=== PATIENT | male | born 1945 | race Caucasian/White ===

== ENCOUNTER 2018-12-18 06:57 | Day surgery (SDC) | payer MEDICARE, BC ==
[2018-12-18] MEDS ORDERED: Lactated Ringers 1,000 ML IV SCH (07:00)
[2018-12-18] MEDS ORDERED: Lidocaine 1%/Sod Bicarbonate in NS 8.4% 1 ML Syringe IDERM PRN (07:00)
[2018-12-18] MEDS ORDERED: Sodium Chloride 0.9% 10 ML Syringe FLUSH PRN (07:00)
[2018-12-18] MEDS ORDERED: Lidocaine 0.5% 50 ML SDV ONE (07:22)
[2018-12-18] MEDS ORDERED: Sodium Bicarbonate 8.4% 50 MEQ/50 ML SDV ONE (07:25)
[2018-12-18] MEDS ORDERED: Midazolam 1 MG/ML 2 ML SDV ONE (07:26)
[2018-12-18] MEDS ORDERED: fentaNYL 100 MCG/2 ML SDV ONE (07:27)
[2018-12-18] MEDS ORDERED: Propofol 200 MG/20 ML SDV ONE (07:28)
[2018-12-18] MEDS ORDERED: ceFAZolin 1 GM Vial ONE ×2 (07:30)
[2018-12-18] MEDS ORDERED: Lidocaine 1% 2 ML ONE ×2 (07:30)
--- NOTE | 2018-12-18 07:56 | PCM.PREANE ---
Preanesthetic Assessment - Anesthesia/Transfusion/Family Hx Anesthesia History: Prior Anesthesia Without Reaction Family History of Anesthesia Reaction: No Transfusion History: No Prior Transfusion(s) - Review of Systems General: No Symptoms Pulmonary: No Symptoms Cardiovascular: No Symptoms Gastrointestinal: No Symptoms Neurological: No Symptoms Other: Reports: None - Physical Assessment NPO Status Date: 12/17/18 NPO Status Time: 18:00 Pulse: 51 O2 Sat by Pulse Oximetry: 92 Respiratory Rate: 20 Blood Pressure: 143/68 Temperature: 97.6 C ASA Class: 2 Mental Status: Alert & Oriented x3 Airway Class: Mallampati = 2 Dentition: Reports: Broken Tooth/Teeth Thyro-Mental Finger Breadths: 3 Mouth Opening Finger Breadths: 3 ROM/Head Extension: Full Lungs: Clear to Auscultation, Normal Respiratory Effort, Decreased Breath Sounds Cardiovascular: Regular Rate, Regular Rhythm - Allergies Allergies/Adverse Reactions: Allergies Allergy/AdvReac Type Severity Reaction Status Date / Time bee venom protein (honey bee) Allergy Swelling Verified 12/17/18 13:17 Penicillins Allergy Cannot Verified 12/17/18 13:17 Remember - Anesthesia Plan Beta Stef: Metoprolol Med Last Dose Date: 12/18/18 Med Last Dose Time: 05:00 - Acknowledgements Anesthesia Type Planned: CONNER Pt an Appropriate Candidate for the Planned Anesthesia: Yes Alternatives and Risks of Anesthesia Discussed w Pt/Guardian: Yes Pt/Guardian Understands and Agrees with Anesthesia Plan: Yes PreAnesthesia Questionnaire HEENT History: Reports: Hard of Hearing, Impaired Vision, Other (See Below) Other HEENT History: has hearing aids, wears glasses Cardiovascular History: Reports: CAD, High Cholesterol, Hypertension, Other ( See Below) Other Cardiovascular History: heart disease Respiratory History: Reports: Sleep Apnea Other Respiratory History: cpap with 1 liter of oxygen at night Gastrointestinal History: Reports: None Genitourinary History: Reports: None, 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: None Musculoskeletal History: Reports: Gout, Osteoarthritis, Other (See Below) Other Musculoskeletal History: right wrist ganglion cyst Neurological History: Reports: None Psychiatric History: Reports: None Endocrine/Metabolic History: Reports: Diabetes, Type II (BS 138 @ 0751), Other ( See Below) Other Endocrine/Metabolic History: excess weight Hematologic History: Reports: None Immunologic History: Reports: None Oncologic (Cancer) History: Reports: None Dermatologic History: Reports: None - Past Surgical History Head Surgeries/Procedures: Reports: None HEENT Surgical History: Reports: Other (See Below) Other HEENT Surgeries/Procedures: bilateral upper and lower lid blepharoplasty Cardiovascular Surgical History: Reports: None Respiratory Surgical History: Reports: None GI Surgical History: Reports: Colonoscopy Female Surgical History: Reports: None Male Surgical History: Reports: None Endocrine Surgical History: Reports: None Neurological Surgical History: Reports: None Musculoskeletal Surgical History: Reports: Arthroscopic Knee, Knee Replacement ( (L)) Oncologic Surgical History: Reports: None Dermatological Surgical History: Reports: None - SUBSTANCE USE Smoking Status *Q: Former Smoker Recreational Drug Use History: No - HOME MEDS Home Medications: Home Meds Allopurinol [Zyloprim] 300 mg PO DAILY 12/17/18 [History] Aspirin [Ecotrin] 81 mg PO DAILY 12/17/18 [History] Cholecalciferol (Vitamin D3) [Vitamin D3] 1,000 unit PO DAILY 12/17/18 [History] Cyanocobalamin (Vitamin B-12) [Vitamin B-12] 500 mcg PO DAILY 12/17/18 [History] EPINEPHrine [Epipen] 1 dose IM ONETIME PRN 12/17/18 [History] Folic Acid 0.8 mg PO DAILY 12/17/18 [History] Furosemide [Lasix] 40 mg PO Q48H 12/17/18 [History] Furosemide [Lasix] 80 mg PO Q48H 12/17/18 [History] Lisinopril 40 mg PO BID 12/17/18 [History] Metoprolol Tartrate 50 mg PO BID 12/17/18 [History] Spironolactone [Aldactone] 25 mg PO DAILY 12/17/18 [History] Vitamin E 400 unit PO DAILY 12/17/18 [History] amLODIPine Besylate [Norvasc] 5 mg PO BID 12/17/18 [History] atorvaSTATin Calcium [Atorvastatin Calcium] 40 mg PO DAILY 12/17/18 [History] cloNIDine HCl [Catapres] 0.2 mg PO QPM 12/17/18 [History] cloNIDine HCl [Catapres] 0.4 mg PO QAM 12/17/18 [History] metFORMIN [Glucophage XR] 500 mg PO DAILY 12/17/18 [History] - CURRENT (IN HOUSE) MEDS Current Meds: Current Medications Lactated Ringer's (Ringers, Lactated) 1,000 mls @ 125 mls/hr IV ASDIRECTED SHERRIE Stop: 12/18/18 23:00 Lidocaine/Sodium Bicarbonate (Buffered Lidocaine 1% In Ns 8.4%) 0.25 ml IDERM ONETIME PRN PRN Reason: Prior to IV Start Stop: 12/18/18 23:00 Sodium Chloride (Saline Flush) 10 ml FLUSH ASDIRECTED PRN PRN Reason: Keep Vein Open Stop: 12/18/18 23:00 Discontinued Medications Cefazolin Sodium (Ancef) Confirm Administered Dose 1 gm .ROUTE .STK-MED ONE Stop: 12/18/18 07:31 Cefazolin Sodium (Ancef) Confirm Administered Dose 1 gm .ROUTE .STK-MED ONE Stop: 12/18/18 07:31 Fentanyl (Sublimaze) Confirm Administered Dose 100 mcg .ROUTE .STK-MED ONE Stop: 12/18/18 07:28 Lidocaine HCl (Xylocaine-Mpf 1%) Confirm Administered Dose 2 mls @ as directed .ROUTE .STK-MED ONE Stop: 12/18/18 07:31 Lidocaine HCl (Xylocaine-Mpf 1%) Confirm Administered Dose 2 mls @ as directed .ROUTE .STK-MED ONE Stop: 12/18/18 07:31 Lidocaine HCl (Xylocaine-Mpf 0.5%) Confirm Administered Dose 50 ml .ROUTE .STK- MED ONE Stop: 12/18/18 07:23 Midazolam HCl (Versed 1 Mg/Ml) Confirm Administered Dose 2 mg .ROUTE .STK-MED ONE Stop: 12/18/18 07:27 Propofol (Diprivan 20 Ml) Confirm Administered Dose 200 mg .ROUTE .STK-MED ONE Stop: 12/18/18 07:29 Sodium Bicarbonate (Sodium Bicarbonate 8.4%) Confirm Administered Dose 50 meq .ROUTE .STK-MED ONE Stop: 12/18/18 07:26
[2018-12-18] MEDS ORDERED: Bupivacaine 0.25% 10 ML SDV ONE (08:12)
[2018-12-18] MEDS ORDERED: Ondansetron 4 MG/2 ML SDV ONE (09:29)
[2018-12-18] MEDS ORDERED: Ketorolac 30 MG/ML SDV ONE (09:30)
--- NOTE | 2018-12-18 09:48 | PCM48HPAN ---
Post Anesthesia Note - EVALUATION WITHIN 48HRS OF ANESTHETIC Vital Signs in Normal Range: Yes Patient Participated in Evaluation: Yes Respiratory Function Stable: Yes Airway Patent: Yes Cardiovascular Function Stable: Yes Hydration Status Stable: Yes Pain Control Satisfactory: Yes Nausea and Vomiting Control Satisfactory: Yes Mental Status Recovered: Yes Pulse Rate: 43 SaO2: 95 Resp Rate: 16 Blood Pressure: 109/63 Pulse Rate: 43 - COMMENTS/OBSERVATIONS Free Text/Narrative:: block receeding, no c/o pain.
--- NOTE | 2018-12-25 13:36 | OR ---
DATE OF OPERATION: 12/18/2018 SURGEON: Josiah Aguillon MD PREOPERATIVE DIAGNOSIS: Right massive dorsal ganglion cyst. POSTOPERATIVE DIAGNOSIS: Right massive dorsal ganglion cyst with extensor tenosynovitis and multilobulated dorsal wrist ganglion cysts. OPERATION PERFORMED: 1. Extensor tenosynovectomy, second, third, and fourth compartments. 2. Posterior interosseous nerve neurectomy. 3. Excision of multiloculated ganglion cysts. 4. Open synovectomy, right wrist. RN ANGIOGRAPHY: assistant director of admissions: Ele Parekh. INDICATIONS: The patient is a very pleasant 73-year-old gentleman with significant wrist arthritis and large recurrent dorsal wrist ganglion cyst. After discussing the risks, benefits, and alternatives of both conservative as well as surgical treatment, the patient verbalized understanding and wished to proceed with surgery. DESCRIPTION OF PROCEDURE: The patient was brought to the operating room. Underwent a Priyanka blockade. Right upper extremity was prepped and draped in a standard orthopedic fashion. Surgical pause was performed identifying the appropriate patient and appropriate extremity to be operated upon. Preoperative antibiotics were given. A dorsal incision was made over the wrist. Sharp dissection was carried down through the skin and subcutaneous tissue. Hemostasis was obtained. A huge ganglion cyst over the dorsum of the wrist appears chronic in nature. We opened the cyst. Again, this was above the extensor tendon and he had significant fluid as well as chronic-appearing ganglion type findings. This was debrided and sent to Pathology. Circumferentially dissected down to the extensor mechanism, he had significant tenosynovitis of second, third, and fourth dorsal compartments. We did a tenosynovectomy of the EPL, ECRB, ECRL, and fourth dorsal compartment extensor tendons. Followed the cyst down to the wrist capsule. Again, this was tracked into the wrist capsule. This was opened. He had significant synovitis of the wrist capsule. We did a synovectomy of his wrist joint, he had some grade 3 and 4 changes present. The ganglion dissected radially over the radiocarpal joint, this was tracked and the synovial cyst was removed. Because of the significant arthritis he had plus a significant tenosynovial hypertrophy, we elected to perform a posterior interosseous nerve neurectomy. We identified the posterior interosseous nerve and resected a 15 mm segment of the nerve. We then irrigated the wounds thoroughly. We closed the capsule with Vicryl suture, closed the extensor retinaculum with Vicryl suture, closed the skin in the standard fashion. He was placed in a well-padded splint, brought to recovery in satisfactory condition. ANESTHESIA: ESTIMATED BLOOD LOSS: MMODAL /[id number]
== END 2018-12-18 11:26 | disposition home or self-care (01) ==
LOC: JD.SDS 06:57
PROVIDERS: ATTEND Orthopaedic Surgery
DX: M67.431 Ganglion, right wrist (principal); M65.4 Radial styloid tenosynovitis [de Quervain]; M19.031 Primary osteoarthritis, right wrist; I25.10 Atherosclerotic heart disease of native coronary artery without angina pectoris; I10 Essential (primary) hypertension; E11.9 Type 2 diabetes mellitus without complications; E78.00 Pure hypercholesterolemia, unspecified; Z88.0 Allergy status to penicillin; Z91.030 Bee allergy status; Z87.891 Personal history of nicotine dependence; Z79.82 Long term (current) use of aspirin; Z79.84 Long term (current) use of oral hypoglycemic drugs; Z79.899 Other long term (current) drug therapy
CPT/HCPCS: 25111; 25118; 64772; 82962; 88304; J0690; J1885; J2001; J2250; J2405; J2704; J3010; J3490; J7120; 01810

== ENCOUNTER 2019-01-19 11:00 | Inpatient (IN) | payer MEDICARE, BC ==
[2019-03-09] MEDS ORDERED: Lactated Ringers 1,000 ML IV SCH (00:01)
[2019-03-09] MEDS ORDERED: Sodium Chloride 0.9% 10 ML Syringe FLUSH PRN (00:01)
[2019-03-09] MEDS ORDERED: Albuterol 0.083% 2.5 MG/3 ML Neb Soln NEB ONE (00:01)
[2019-03-09] MEDS ORDERED: Lidocaine 1%/Sod Bicarbonate in NS 8.4% 1 ML Syringe IDERM PRN (00:01)
[2019-03-09] MEDS ORDERED: Naloxone 0.4 MG/ML SDV IVPUSH PRN (07:26)
[2019-03-09] MEDS ORDERED: Ondansetron 4 MG/2 ML SDV IVPUSH PRN (07:26)
[2019-03-09] MEDS ORDERED: Bisacodyl 5 MG Tab PO PRN (07:26)
[2019-03-09] MEDS ORDERED: Sennosides 8.6 MG Tab PO PRN (07:26)
[2019-03-09] MEDS ORDERED: ceFAZolin 1 GM Vial ONE ×3 (09:34→09:52)
[2019-03-09] MEDS ORDERED: Vancomycin 1 GM SDV ONE ×2 (09:34→10:37)
[2019-03-09] MEDS ORDERED: Iodine/Sodium Iodide 2% Tincture 30 ML Bottle ONE (09:35)
[2019-03-09] MEDS ORDERED: Bupivacaine 0.25% 30 ML SDV ONE (09:35)
--- NOTE | 2019-03-09 09:43 | PCM.PREANE ---
Preanesthetic Assessment - Anesthesia/Transfusion/Family Hx Anesthesia History: Prior Anesthesia Without Reaction Family History of Anesthesia Reaction: No Transfusion History: No Prior Transfusion(s) Intubation History: Unknown - Review of Systems General: No Symptoms Pulmonary: Shortness of Breath, Wheezing, Other Cardiovascular: Other Gastrointestinal: No Symptoms Neurological: No Symptoms Other: Reports: Diabetes - Physical Assessment NPO Status Date: 03/08/19 NPO Status Time: 23:45 O2 Sat by Pulse Oximetry: 95 Respiratory Rate: 16 Vital Signs: Last Vital Signs Temp 36.9 C 03/09/19 08:40 Pulse 63 03/09/19 08:40 Resp 16 03/09/19 08:40 BP 123/69 03/09/19 08:40 Pulse Ox 95 03/09/19 08:40 Height: 1.75 m Weight: 105.687 kg ASA Class: 4 Mental Status: Alert & Oriented x3 Airway Class: Mallampati = 3 Dentition: Reports: Normal Dentition ROM/Head Extension: Limited/Partial Lungs: Crackles, Rales, Wheezing Cardiovascular: Regular Rate - Lab Values: Laboratory Last Values POC Glucose 141 mg/dL (83-110) H 03/09/19 09:10 MRSA (PCR) Negative 02/25/19 14:33 - Allergies Allergies/Adverse Reactions: Allergies Allergy/AdvReac Type Severity Reaction Status Date / Time bee venom protein (honey bee) Allergy Swelling Verified 03/06/19 15:11 Penicillins Allergy Cannot Verified 03/06/19 15:11 Remember - Anesthesia Plan Pre-Op Medication Ordered: Beta Stef Beta Stef: Metoprolol Med Last Dose Date: 03/09/19 Med Last Dose Time: 07:00 - Acknowledgements Anesthesia Type Planned: Spinal Pt an Appropriate Candidate for the Planned Anesthesia: Yes Alternatives and Risks of Anesthesia Discussed w Pt/Guardian: Yes Pt/Guardian Understands and Agrees with Anesthesia Plan: Yes Additional Comments: clonidine this am - CHF - receiving duo neb treatment preop- high risk - stated per orthopedic PA- lives fairly normal life - mows yard with riding mower, cuts branches- - PreAnesthesia Questionnaire HEENT History: Reports: Hard of Hearing, Impaired Vision, Other (See Below) Other HEENT History: has hearing aids, wears glasses Cardiovascular History: Reports: CAD, High Cholesterol, Hypertension, Other ( See Below) Other Cardiovascular History: heart disease Respiratory History: Reports: Sleep Apnea Other Respiratory History: cpap with 2 liter of oxygen at night Gastrointestinal History: Reports: GI Bleed Genitourinary History: Reports: Chronic Renal Insuffiency 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 Musculoskeletal History: Reports: Gout, Osteoarthritis, Other (See Below) Other Musculoskeletal History: right wrist ganglion cyst Neurological History: Reports: None Psychiatric History: Reports: None Endocrine/Metabolic History: Reports: Diabetes, Type II, Obesity/BMI 30+, Other (See Below) Other Endocrine/Metabolic History: excess weight Hematologic History: Reports: None Immunologic History: Reports: None Oncologic (Cancer) History: Reports: None Dermatologic History: Reports: None - Past Surgical History Head Surgeries/Procedures: Reports: None HEENT Surgical History: Reports: Other (See Below) Other HEENT Surgeries/Procedures: bilateral upper and lower lid blepharoplasty Cardiovascular Surgical History: Reports: None Respiratory Surgical History: Reports: None GI Surgical History: Reports: Colonoscopy Female Surgical History: Reports: None Other Female Surgeries/Procedures: HYDROCELE REPAIR Male Surgical History: Endocrine Surgical History: Reports: None Neurological Surgical History: Reports: None Musculoskeletal Surgical History: Reports: Arthroscopic Knee, Knee Replacement, Other (See Below) Other Musculoskeletal Surgeries/Procedures:: R WRIST GANGLION CYST REMOVAL Oncologic Surgical History: Reports: None Dermatological Surgical History: Reports: None - SUBSTANCE USE Smoking Status *Q: Former Smoker Second Hand Smoke Exposure: No Recreational Drug Use History: No - HOME MEDS Home Medications: Home Meds Allopurinol [Zyloprim] 300 mg PO Q48H 12/17/18 [History] Aspirin [Ecotrin EC] 81 mg PO DAILY 12/17/18 [History] Furosemide [Lasix] 40 mg PO TUTHSA 12/17/18 [History] Furosemide [Lasix] 80 mg PO MOWEFR 12/17/18 [History] Lisinopril 40 mg PO BID 12/17/18 [History] Metoprolol Tartrate 150 mg PO DAILY 12/17/18 [History] Spironolactone [Aldactone] 25 mg PO DAILY 12/17/18 [History] amLODIPine Besylate [Norvasc] 15 mg PO DAILY 12/17/18 [History] atorvaSTATin Calcium [Atorvastatin Calcium] 40 mg PO DAILY 12/17/18 [History] cloNIDine HCl [Catapres] 0.2 mg PO QPM 12/17/18 [History] cloNIDine HCl [Catapres] 0.4 mg PO QAM 12/17/18 [History] metFORMIN [Glucophage XR] 500 mg PO DAILY 12/17/18 [History] Cetirizine HCl [Zyrtec] 10 mg PO DAILY 03/06/19 [History] Fluticasone Propionate [Flonase] 1 dose NASBOTH BEDTIME 03/06/19 [History] - CURRENT (IN HOUSE) MEDS Current Meds: Current Medications Aspirin (Ecotrin) 325 mg PO BID [facility] Bisacodyl (Dulcolax) 5 mg PO DAILY PRN PRN Reason: Constipation Epinephrine HCl 0.3 mg/Cefuroxime Sodium 750 mg/Sodium Chloride 27.9 ml 0 mg .XX ONETIME ONE Stop: 03/09/19 07:26 Cyclobenzaprine HCl (Flexeril) 10 mg PO BID PRN PRN Reason: Spasms Docusate Sodium (Colace) 100 mg PO BID [facility] Hydromorphone HCl (Dilaudid) 0.2 mg IVPUSH Q2H PRN PRN Reason: Pain (moderate 4-6) Lactated Ringer's (Ringers, Lactated) 1,000 mls @ 125 mls/hr IV ASDIRECTED [facility] Last Admin: 03/09/19 09:09 Dose: 125 mls/hr Cefazolin Sodium/Dextrose 2 gm (/ Premix) 50 mls @ 100 mls/hr IV Q8H [facility] Stop: 03/09/19 23:59 Lidocaine/Sodium Bicarbonate (Buffered Lidocaine 1% In Ns 8.4%) 0.25 ml IDERM ONETIME PRN PRN Reason: Prior to IV Start Last Admin: 03/09/19 09:09 Dose: 0.25 ml Naloxone HCl (Narcan) 0.1 mg IVPUSH Q5M PRN PRN Reason: Oversedation Ondansetron HCl (Zofran) 4 mg IVPUSH Q6H PRN PRN Reason: Nausea/Vomiting Senna (Senna) 8.6 mg PO BID PRN PRN Reason: Constipation Sodium Chloride (Saline Flush) 10 ml FLUSH ASDIRECTED PRN PRN Reason: Keep Vein Open Tramadol HCl (Ultram) 50 - 100 mg PO Q4H PRN PRN Reason: Pain Discontinued Medications Albuterol (Proventil Neb Soln) 2.5 mg NEB ONETIME ONE Stop: 03/09/19 00:02
[2019-03-09] MEDS ORDERED: fentaNYL 100 MCG/2 ML SDV ONE (09:51)
[2019-03-09] MEDS ORDERED: Midazolam 1 MG/ML 2 ML SDV ONE ×4 (09:52→12:03)
[2019-03-09] MEDS ORDERED: Albuterol 0.083% 2.5 MG/3 ML Neb Soln ONE (10:08)
[2019-03-09] MEDS ORDERED: ePHEDrine/Normal Saline 25 MG/5 ML Syringe ONE (11:25)
[2019-03-09] MEDS ORDERED: Lactated Ringers 1,000 ML ONE (11:39)
[2019-03-09] MEDS: CEFUROXIME ONE ×6 (12:25→14:19)
[2019-03-09] MEDS: SODIUM CHLORIDE 0.9% ONE ×6 (12:25→14:19)
[2019-03-09] MEDS: EPINEPHRINE ONE ×6 (12:25→14:19)
--- NOTE | 2019-03-09 13:15 | PCM.POSTAN ---
POST ANESTHESIA ASSESSMENT - MENTAL STATUS Mental Status: Alert - RESPIRATORY Respiratory Status: Respiratory Rate WNL, Airway Patent, O2 Saturation Stable, Supplemental Oxygen - CARDIOVASCULAR CV Status: Pulse Rate WNL, Blood Pressure Stable - GASTROINTESTINAL GI Status: No Symptoms - POST OP HYDRATION Hydration Status: Adequate & Stable
--- NOTE | 2019-03-09 13:51 | CR ---
Pelvis and left hip: AP view of the pelvis was obtained as well as lateral view of the left hip. Comparison: No previous study. Left hip prosthesis is seen. Components are aligned. Underlying bony structures are intact. Slight degenerative change is partially visualized within the lumbar spine. Impression: 1. Satisfactory radiographic appearance of recently placed left hip prosthesis. 2. Other findings as noted above. Diagnostic code #2
[2019-03-09] MEDS: Docusate Sodium 100 MG Cap PO SCH ×2 (14:19→22:00)
[2019-03-09] MEDS: traMADol 50 MG Tab PO PRN ×3 (14:22→22:00)
[2019-03-09] MEDS: HYDROmorphone 0.5 MG/0.5 ML Syringe IVPUSH PRN ×2 (15:59→18:11)
[2019-03-09] MEDS: Cyclobenzaprine 10 MG Tab PO PRN (16:01)
[2019-03-09] MEDS: ceFAZolin 2 GM in Premix Bag 1 BAG IV SCH (16:02)
--- NOTE | 2019-03-09 17:19 | PCM.CONS ---
H&P History of Present Illness - General Date of Service: 03/09/19 Admit Problem/Dx: Admission Diagnosis/Problem Admission Diagnosis/Problem Osteoarthritis of hip Source of Information: Patient, Old Records, Provider, RN, RN Notes Reviewed History Limitations: Reports: No Limitations - History of Present Illness Initial Comments - Free Text/Narative: Fransisco Charlton is a 73 yo male patient of Dr. Powell who is post-operative day 0 of left ENMA. Hospital medicine was consulted for post-operative medical care of the following listed medical conditions. At this time he is resting in bed. Pain is controlled for the most part. He denies any chest pain, shortness of breath, palpitations, nausea, or vomiting. He carries a history of: Hard of hearing, Impaired vision, Sleep Apnea on CPAP with 2L O2 bleed-in, Lung cyst, Osteoarthritis, HLD, Hypoxia, HTN, Hx/O GI Bleed, Gout, Diabetes, CKD stage 2-3 , Diabetic neuropathy, Bilateral carpal tunnel syndrome, 1st degree AV block, Cardiomegaly, CHF, CAD, Obesity. He is a former smoker. He is a full code. His primary care provider is Dr. Wright. Left Hip Pain Score (Numeric/FACES): 8 - Related Data Allergies/Adverse Reactions: Allergies Allergy/AdvReac Type Severity Reaction Status Date / Time bee venom protein (honey bee) Allergy Swelling Verified 03/09/19 14:22 Penicillins Allergy Cannot Verified 03/09/19 14:35 Remember Home Medications: Home Meds Allopurinol [Zyloprim] 300 mg PO Q48H 12/17/18 [History] Aspirin [Ecotrin EC] 81 mg PO DAILY 12/17/18 [History] Furosemide [Lasix] 40 mg PO TUTHSA 12/17/18 [History] Furosemide [Lasix] 80 mg PO MOWEFR 12/17/18 [History] Lisinopril 40 mg PO BID 12/17/18 [History] Metoprolol Tartrate 150 mg PO DAILY 12/17/18 [History] Spironolactone [Aldactone] 25 mg PO DAILY 12/17/18 [History] amLODIPine Besylate [Norvasc] 15 mg PO DAILY 12/17/18 [History] atorvaSTATin Calcium [Atorvastatin Calcium] 40 mg PO DAILY 12/17/18 [History] cloNIDine HCl [Catapres] 0.2 mg PO QPM 12/17/18 [History] cloNIDine HCl [Catapres] 0.4 mg PO QAM 12/17/18 [History] metFORMIN [Glucophage XR] 500 mg PO DAILY 12/17/18 [History] Cetirizine HCl [Zyrtec] 10 mg PO DAILY 03/06/19 [History] Fluticasone Propionate [Flonase] 1 dose NASBOTH BEDTIME 03/06/19 [History] Past Medical History HEENT History: Reports: Hard of Hearing, Impaired Vision, Other (See Below) Other HEENT History: has hearing aids, wears glasses Cardiovascular History: Reports: CAD, High Cholesterol, Hypertension, Other ( See Below) Other Cardiovascular History: heart disease Respiratory History: Reports: Sleep Apnea Other Respiratory History: cpap with 2 liter of oxygen at night Gastrointestinal History: Reports: GI Bleed Genitourinary History: Reports: Chronic Renal Insuffiency ATHLETIC TEAM PHYSICIAN History: Reports: None Musculoskeletal History: Reports: Gout, Osteoarthritis, Other (See Below) Other Musculoskeletal History: right wrist ganglion cyst Neurological History: Reports: None Psychiatric History: Reports: None Endocrine/Metabolic History: Reports: Diabetes, Type II, Obesity/BMI 30+, Other (See Below) Other Endocrine/Metabolic History: excess weight Hematologic History: Reports: None Immunologic History: Reports: None Oncologic (Cancer) History: Reports: None Dermatologic History: Reports: None - Past Surgical History Head Surgeries/Procedures: Reports: None HEENT Surgical History: Reports: Other (See Below) Other HEENT Surgeries/Procedures: bilateral upper and lower lid blepharoplasty Cardiovascular Surgical History: Reports: None Respiratory Surgical History: Reports: None GI Surgical History: Reports: Colonoscopy Female Surgical History: Reports: None Other Female Surgeries/Procedures: HYDROCELE REPAIR Male Surgical History: Endocrine Surgical History: Reports: None Neurological Surgical History: Reports: None Musculoskeletal Surgical History: Reports: Arthroscopic Knee, Knee Replacement, Other (See Below) Other Musculoskeletal Surgeries/Procedures:: R WRIST GANGLION CYST REMOVAL Oncologic Surgical History: Reports: None Dermatological Surgical History: Reports: None Social & Family History - Tobacco Use Smoking Status *Q: Former Smoker Years of Tobacco use: 30 Packs/Tins Daily: 2 Used Tobacco, but Quit: Yes Month/Year Tobacco Last Used: Sep 1997 Second Hand Smoke Exposure: No - Caffeine Use Caffeine Use: Reports: Coffee Other Caffeine Use: 2 cups/day - Recreational Drug Use Recreational Drug Use: No H&P Review of Systems - Review of Systems: Review Of Systems: See Below General: Reports: No Symptoms. Denies: Fever, Chills HEENT: Reports: No Symptoms. Denies: Headaches, Sore Throat Pulmonary: Reports: No Symptoms. Denies: Shortness of Breath, Wheezing, Cough, Sputum Cardiovascular: Reports: No Symptoms. Denies: Chest Pain, Palpitations Gastrointestinal: Reports: No Symptoms Genitourinary: Reports: No Symptoms. Denies: Pain Musculoskeletal: Reports: Leg Pain Skin: Reports: No Symptoms. Denies: Cyanosis Psychiatric: Reports: No Symptoms. Denies: Confusion Neurological: Reports: No Symptoms. Denies: Pre-Existing Deficit Hematologic/Lymphatic: Reports: No Symptoms Immunologic: Reports: No Symptoms Exam - Exam Exam: See Below - Vital Signs Vital Signs: Last Vital Signs Temp 97.3 F 03/09/19 13:45 Pulse 70 03/09/19 16:13 Resp 16 03/09/19 13:45 BP 155/65 H 03/09/19 16:13 Pulse Ox 97 03/09/19 16:13 Weight: 233 lb - Exam Quality Assessment: DVT Prophylaxis. No: Supplemental Oxygen, Urinary Catheter General: Alert, Oriented, Cooperative. No: Mild Distress HEENT: Conjunctiva Clear, EACs Clear, EOMI, Hearing Intact, Mucosa Moist & [place] , Nares Patent, Posterior Pharynx Clear, PERRLA Neck: Supple, Trachea Midline Lungs: Clear to Auscultation, Normal Respiratory Effort Cardiovascular: Regular Rate, Regular Rhythm GI/Abdominal Exam: Normal Bowel Sounds, Soft, Non-Tender, No Distention, No Abnormal Bruit (Male) Exam: Deferred Rectal (Males) Exam: Deferred Back Exam: Normal Inspection, Full Range of Motion Extremities: No Pedal Edema, Normal Capillary Refill, Leg Pain, Limited Range of Motion, Other (Bandage in place on left leg. Bandage is dry and intact. Cooling pack in place. ) Peripheral Pulses: 2+: Radial (L), Radial (R), Dorsalis Pedis (L), Dorsalis Pedis (R) Skin: Warm, Dry, Intact Neurological: Cranial Nerves Intact (Grossly ) Neuro Extensive - Mental Status: Alert, Oriented x3 - Patient Data Lab Results Last 24 hrs: Laboratory Results - last 24 hr 03/09/19 03/09/19 Range/Units 09:09 09:10 POC Glucose 141 H (83-110) mg/dL Blood Type A POSITIVE Gel Antibody Screen Negative Consult PN Assessment/Plan POD#: 0 Procedures: Procedures ASSAY OF BLOOD/URIC ACID (12/31/18) ASSAY OF PARATHORMONE (12/31/18) ASSAY OF PROTEIN URINE (12/31/18) ASSAY OF URINE CREATININE (12/31/18) COMPLETE CBC AUTOMATED (01/09/18) COMPLETE CBC W/AUTO DIFF WBC (12/31/18) EXCISE WRIST TENDON SHEATH (12/18/18) GLUCOSE BLOOD TEST (12/18/18) INCISION OF SPINAL NERVE (12/18/18) REMOVE WRIST TENDON LESION (12/18/18) RENAL FUNCTION PANEL (12/31/18) ROUTINE VENIPUNCTURE (12/31/18) TISSUE EXAM BY PATHOLOGIST (12/18/18) URINALYSIS AUTO W/SCOPE (12/31/18) VITAMIN D 25 HYDROXY (12/31/18) (1) S/P total hip arthroplasty SNOMED Code(s): 052992129508, 373455541295 Code(s): Z96.649 - PRESENCE OF UNSPECIFIED ARTIFICIAL HIP JOINT Priority: High Current Visit: Yes Qualifiers: Laterality: left Qualified Code(s): Z96.642 - Presence of left artificial hip joint (2) Osteoarthritis SNOMED Code(s): 564134769 Code(s): M19.90 - UNSPECIFIED OSTEOARTHRITIS, UNSPECIFIED SITE Priority: High Current Visit: Yes Qualifiers: Osteoarthritis location: hip Osteoarthritis type: primary Laterality: left Qualified Code(s): M16.12 - Unilateral primary osteoarthritis, left hip (3) CAD (coronary artery disease) SNOMED Code(s): 47612418 Code(s): I25.10 - ATHSCL HEART DISEASE OF [place] CORONARY ARTERY W/O ANG PCTRS Priority: Medium Current Visit: No Qualifiers: Coronary Disease-Associated Artery/Lesion type: unspecified vessel or lesion type [place] vs. transplanted heart: [place] heart Associated angina: angina presence unspecified Qualified Code(s): I25.10 - Atherosclerotic heart disease of [place] coronary artery without angina pectoris (4) HLD (hyperlipidemia) SNOMED Code(s): 61194900 Code(s): E78.5 - HYPERLIPIDEMIA, UNSPECIFIED Priority: Low Current Visit : No Qualifiers: Hyperlipidemia type: unspecified Qualified Code(s): E78.5 - Hyperlipidemia , unspecified (5) HTN (hypertension) SNOMED Code(s): 98750254 Code(s): I10 - ESSENTIAL (PRIMARY) HYPERTENSION Priority: Low Current Visit: No Qualifiers: Hypertension type: unspecified Qualified Code(s): I10 - Essential (primary ) hypertension (6) CHF (congestive heart failure) SNOMED Code(s): 56142806 Code(s): I50.9 - HEART FAILURE, UNSPECIFIED Priority: Low Current Visit: No Qualifiers: Heart failure type: unspecified Heart failure chronicity: chronic Qualified Code(s): I50.9 - Heart failure, unspecified (7) Sleep apnea SNOMED Code(s): 71112122 Code(s): G47.30 - SLEEP APNEA, UNSPECIFIED Priority: Low Current Visit: No Qualifiers: Sleep apnea type: unspecified type Qualified Code(s): G47.30 - Sleep apnea , unspecified (8) History of GI bleed SNOMED Code(s): 227564789 Code(s): Z87.19 - PERSONAL HISTORY OF OTHER DISEASES OF THE DIGESTIVE SYSTEM Priority: Low Current Visit: No (9) CKD (chronic kidney disease) SNOMED Code(s): 915350568 Code(s): N18.9 - CHRONIC KIDNEY DISEASE, UNSPECIFIED Priority: Medium Current Visit: No Qualifiers: Chronic kidney disease stage: unspecified stage Qualified Code(s): N18.9 - Chronic kidney disease, unspecified (10) Gout SNOMED Code(s): 24257551 Code(s): M10.9 - GOUT, UNSPECIFIED Priority: Low Current Visit: No Qualifiers: Gout site: unspecified site Gout etiology: unspecified cause Chronicity: chronic (11) Type II diabetes mellitus SNOMED Code(s): 62485553 Code(s): E11.9 - TYPE 2 DIABETES MELLITUS WITHOUT COMPLICATIONS Priority: Medium Current Visit: No Qualifiers: Diabetes mellitus java software architect insulin use: without java software architect use Diabetes mellitus complication status: without complication Qualified Code(s): E11.9 - Type 2 diabetes mellitus without complications (12) Diabetic neuropathy SNOMED Code(s): 923890256, 823280622 Code(s): E11.40 - TYPE 2 DIABETES MELLITUS WITH DIABETIC NEUROPATHY, UNSP Priority: Low Current Visit: No Qualifiers: Diabetes mellitus type: type 2 Diabetes mellitus complication detail: with other neurological complication Qualified Code(s): E11.49 - Type 2 diabetes mellitus with other diabetic neurological complication (13) Postoperative urinary retention SNOMED Code(s): 402976657 Code(s): N99.89 - OTH POSTPROCEDURAL COMPLICATIONS AND DISORDERS OF SYS; R33.8 - OTHER RETENTION OF URINE Priority: High Current Visit: Yes Problem List Initiated/Reviewed/Updated: Yes My Orders Last 24 Hours: My Active Orders 03/09/19 16:46 Patient Status [ADT] Routine Plan: I/P: Acute: S/P left total hip arthroplasty - post-operative day 0 -DVT prophylaxis and pain management per primary care team -PT/OT -IS/RT -Monitor oxygen saturation -Titrate oxygen as needed -Continue home CPAP -Notes from PCP Pre-op reviewed -Home medications reviewed -Vital signs stable -Telemetry -Monitor labs -Pre-operative Hgb was 13.1 -Pre-operative GFR was 78 -Pre-operative creatinine 1.29 Osteoarthritis of left hip -Pain management per primary care team Post-operative urinary retention -Patient reports need to void and unable -Bladder scan reveals 585mL urine -No history of BPH or prostate problems -Flomax 0.4mg now -Urinary retention protocol Chronic: Hard of hearing Impaired vision Sleep Apnea on CPAP with 2L O2 bleed-in Lung cyst Osteoarthritis HLD Hypoxia HTN Hx/O GI Bleed Gout Diabetes CKD stage 2-3 Diabetic neuropathy Bilateral carpal tunnel syndrome 1st degree AV block Cardiomegaly CHF CAD Obesity Plan: for discharge planning GI prophylaxis Home medications as indicated Other orders as listed above Routine AM labs He is a full code. His PCP is Dr. Wright Thank you for allowing us to participate in the care of this patient!! Requesting Provider: Dr. Powell Date Consult Requested: 03/09/19 Patient History Reviewed: Yes Admission H&P Reviewed: Yes Time Spent (in minutes): 40
[2019-03-09] MEDS ORDERED: Albuterol/Ipratropium 3.0-0.5 MG/3 ML Neb Soln NEB PRN (17:48)
[2019-03-09] MEDS ORDERED: cloNIDine 0.1 MG Tab PO SCH (18:00)
[2019-03-09] MEDS ORDERED: Tamsulosin 0.4 MG Cap.ER PO ONE (18:58)
[2019-03-09] MEDS: Insulin Lispro 100 Units/ML 3 ML Vial SUBCUT SCH (22:06)
[2019-03-10] MEDS: traMADol 50 MG Tab PO PRN ×4 (02:19→15:32)
[2019-03-10] MEDS: ceFAZolin 2 GM in Premix Bag 1 BAG IV SCH ×2 (02:19→08:17)
[2019-03-10] MEDS ORDERED: cloNIDine 0.1 MG Tab PO SCH (08:00)
[2019-03-10] MEDS: Docusate Sodium 100 MG Cap PO SCH (08:15)
[2019-03-10] MEDS: Insulin Lispro 100 Units/ML 3 ML Vial SUBCUT SCH ×2 (08:17→11:19)
[2019-03-10] MEDS: Cyclobenzaprine 10 MG Tab PO PRN (08:19)
--- NOTE | 2019-03-10 08:36 | PCM.SURGPN ---
- General Info Date of Service: 03/10/19 POD#: 1 Functional Status: Reports: Pain Controlled, Tolerating Diet, Ambulating, Incentive Spirometry, Other (The pt was catherized last night. He states he voided a small amount this morning.) - Patient Data Vitals - Most Recent: Last Vital Signs Temp 98.4 F 03/10/19 07:50 Pulse 84 03/10/19 08:15 Resp 20 03/10/19 07:50 BP 151/78 H 03/10/19 08:16 Pulse Ox 94 L 03/10/19 07:50 Weight - Most Recent: 238 lb 2 oz I&O - Last 24 Hours: Intake & Output 03/09/19 03/10/19 03/10/19 22:59 06:59 14:59 Intake Total 810 450 Output Total 0 775 Balance 810 -325 Lab Results Last 24 Hrs: Laboratory Results - last 24 hr 03/09/19 03/09/19 03/09/19 Range/Units 09:09 09:10 17:44 WBC (4.23-9.07) K/mm3 RBC (4.63-6.08) M/mm3 Hgb (13.7-17.5) gm/L Hct (40.1-51.0) % MCV (79.0-92.2) fl MCH (25.7-32.2) pg MCHC (32.2-35.5) g/dl RDW Std Deviation (35.1-43.9) fL Plt Count (163-337) K/mm3 MPV (9.4-12.3) fl Sodium (136-145) mEq/L Potassium (3.5-5.1) mEq/L Chloride (98-107) mEq/L Carbon Dioxide (21-32) mEq/L Anion Gap (5-15) BUN (7-18) mg/dL Creatinine (0.7-1.3) mg/dL Est Cr Clr Drug Dosing mL/min Estimated GFR (MDRD) (>60) mL/min BUN/Creatinine Ratio (14-18) Glucose (83-115) mg/dL POC Glucose 141 H 150 H (83-110) mg/dL Calcium (8.5-10.1) mg/dL Total Bilirubin (0.2-1.0) mg/dL AST (15-37) U/L ALT (16-63) U/L Alkaline Phosphatase (46-116) U/L Total Protein (6.4-8.2) g/dl Albumin (3.4-5.0) g/dl Globulin gm/dL Albumin/Globulin Ratio (1-2) Blood Type A POSITIVE Gel Antibody Screen Negative 03/09/19 03/10/19 03/10/19 Range/Units 21:58 05:15 05:15 WBC 11.54 H (4.23-9.07) K/mm3 RBC 4.06 L (4.63-6.08) M/mm3 Hgb 12.4 L (13.7-17.5) gm/L Hct 39.0 L (40.1-51.0) % MCV 96.1 H (79.0-92.2) fl MCH 30.5 (25.7-32.2) pg MCHC 31.8 L (32.2-35.5) g/dl RDW Std Deviation 47.4 H (35.1-43.9) fL Plt Count 197 (163-337) K/mm3 MPV 9.0 L (9.4-12.3) fl Sodium 136 (136-145) mEq/L Potassium 5.2 H (3.5-5.1) mEq/L Chloride 102 (98-107) mEq/L Carbon Dioxide 29 (21-32) mEq/L Anion Gap 10.2 (5-15) BUN 26 H (7-18) mg/dL Creatinine 1.5 H (0.7-1.3) mg/dL Est Cr Clr Drug Dosing 43.21 mL/min Estimated GFR (MDRD) 46 (>60) mL/min BUN/Creatinine Ratio 17.3 (14-18) Glucose 155 H (83-115) mg/dL POC Glucose 238 H (83-110) mg/dL Calcium 8.6 (8.5-10.1) mg/dL Total Bilirubin 0.6 (0.2-1.0) mg/dL AST 25 (15-37) U/L ALT 24 (16-63) U/L Alkaline Phosphatase 62 (46-116) U/L Total Protein 6.8 (6.4-8.2) g/dl Albumin 3.3 L (3.4-5.0) g/dl Globulin 3.5 gm/dL Albumin/Globulin Ratio 0.9 L (1-2) Blood Type Gel Antibody Screen 03/10/19 Range/Units 06:09 WBC (4.23-9.07) K/mm3 RBC (4.63-6.08) M/mm3 Hgb (13.7-17.5) gm/L Hct (40.1-51.0) % MCV (79.0-92.2) fl MCH (25.7-32.2) pg MCHC (32.2-35.5) g/dl RDW Std Deviation (35.1-43.9) fL Plt Count (163-337) K/mm3 MPV (9.4-12.3) fl Sodium (136-145) mEq/L Potassium (3.5-5.1) mEq/L Chloride (98-107) mEq/L Carbon Dioxide (21-32) mEq/L Anion Gap (5-15) BUN (7-18) mg/dL Creatinine (0.7-1.3) mg/dL Est Cr Clr Drug Dosing mL/min Estimated GFR (MDRD) (>60) mL/min BUN/Creatinine Ratio (14-18) Glucose (83-115) mg/dL POC Glucose 158 H (83-110) mg/dL Calcium (8.5-10.1) mg/dL Total Bilirubin (0.2-1.0) mg/dL AST (15-37) U/L ALT (16-63) U/L Alkaline Phosphatase (46-116) U/L Total Protein (6.4-8.2) g/dl Albumin (3.4-5.0) g/dl Globulin gm/dL Albumin/Globulin Ratio (1-2) Blood Type Gel Antibody Screen Med Orders - Current: Current Medications Albuterol/Ipratropium (Duoneb 3.0-0.5 Mg/3 Ml) 3 ml NEB Q6HRRT PRN PRN Reason: wheezing/SOB/cough Amlodipine Besylate (Norvasc) 15 mg PO DAILY [facility] Last Admin: 03/10/19 08:16 Dose: 15 mg Aspirin (Ecotrin) 325 mg PO BID [facility] Last Admin: 03/10/19 08:15 Dose: 325 mg Bisacodyl (Dulcolax) 5 mg PO DAILY PRN PRN Reason: Constipation Clonidine HCl (Catapres) 0.2 mg PO QPM [facility] Last Admin: 03/09/19 18:34 Dose: 0.2 mg Clonidine HCl (Catapres) 0.4 mg PO QAM [facility] Last Admin: 03/10/19 08:16 Dose: 0.4 mg Cyclobenzaprine HCl (Flexeril) 10 mg PO BID PRN PRN Reason: Spasms Last Admin: 03/10/19 08:19 Dose: 10 mg Docusate Sodium (Colace) 100 mg PO BID [facility] Last Admin: 03/10/19 08:15 Dose: 100 mg Hydromorphone HCl (Dilaudid) 0.2 mg IVPUSH Q2H PRN PRN Reason: Pain (moderate 4-6) Last Admin: 03/09/19 18:11 Dose: 0.2 mg Cefazolin Sodium/Dextrose 2 gm (/ Premix) 50 mls @ 100 mls/hr IV Q8H [facility] Stop: 03/10/19 09:29 Last Admin: 03/10/19 08:17 Dose: 100 mls/hr Insulin Human Lispro (Humalog) 0 unit SUBCUT QIDACANDBED [facility]; Protocol Last Admin: 03/10/19 08:17 Dose: 1 units Lisinopril (Prinivil) 40 mg PO DAILY [facility] Last Admin: 03/10/19 08:15 Dose: 40 mg Loratadine (Claritin) 10 mg PO DAILY [facility] Last Admin: 03/10/19 08:15 Dose: 10 mg Metoprolol Tartrate (Lopressor) 150 mg PO DAILY [facility] Last Admin: 03/10/19 08:15 Dose: 150 mg Naloxone HCl (Narcan) 0.1 mg IVPUSH Q5M PRN PRN Reason: Oversedation Ondansetron HCl (Zofran) 4 mg IVPUSH Q6H PRN PRN Reason: Nausea/Vomiting Rosuvastatin Calcium (Crestor) 10 mg PO DAILY [facility] Last Admin: 03/10/19 08:15 Dose: 10 mg Senna (Senna) 8.6 mg PO BID PRN PRN Reason: Constipation Sodium Chloride (Saline Flush) 10 ml FLUSH ASDIRECTED PRN PRN Reason: Keep Vein Open Tramadol HCl (Ultram) 50 - 100 mg PO Q4H PRN PRN Reason: Pain Last Admin: 03/10/19 06:16 Dose: 100 mg Discontinued Medications Albuterol (Proventil Neb Soln) 2.5 mg NEB ONETIME ONE Stop: 03/09/19 00:02 Last Admin: 03/09/19 10:10 Dose: 2.5 mg Albuterol (Proventil Neb Soln) Confirm Administered Dose 2.5 mg .ROUTE .STK-MED ONE Stop: 03/09/19 10:09 Last Admin: 03/09/19 11:18 Dose: Not Given Bupivacaine HCl (Marcaine 0.25%) Confirm Administered Dose 30 ml .ROUTE .STK- MED ONE Stop: 03/09/19 09:36 Last Admin: 03/09/19 12:26 Dose: 30 ml Cefazolin Sodium (Ancef) Confirm Administered Dose 2 gm .ROUTE .STK-MED ONE Stop: 03/09/19 09:35 Last Admin: 03/09/19 12:22 Dose: 2 gm Cefazolin Sodium (Ancef) Confirm Administered Dose 1 gm .ROUTE .STK-MED ONE Stop: 03/09/19 09:53 Cefazolin Sodium (Ancef) Confirm Administered Dose 1 gm .ROUTE .STK-MED ONE Stop: 03/09/19 09:53 Epinephrine HCl 0.3 mg/Cefuroxime Sodium 750 mg/Sodium Chloride 27.9 ml 0 mg .XX ONETIME ONE Stop: 03/09/19 11:31 Last Admin: 03/09/19 14:19 Dose: Not Given Ephedrine Sulfate (Ephedrine In Ns) Confirm Administered Dose 25 mg .ROUTE .STK- MED ONE Stop: 03/09/19 11:26 Fentanyl (Sublimaze) Confirm Administered Dose 100 mcg .ROUTE .STK-MED ONE Stop: 03/09/19 09:52 Lactated Ringer's (Ringers, Lactated) 1,000 mls @ 125 mls/hr IV ASDIRECTED [facility] Last Admin: 03/09/19 09:09 Dose: 125 mls/hr Lactated Ringer's (Ringers, Lactated) Confirm Administered Dose 1,000 mls @ as directed .ROUTE .STK-MED ONE Stop: 03/09/19 11:40 Iodine (Iodine 2% Mild Tincture) Confirm Administered Dose 30 ml .ROUTE .STK- MED ONE Stop: 03/09/19 09:36 Last Admin: 03/09/19 12:21 Dose: 18 ml Lidocaine/Sodium Bicarbonate (Buffered Lidocaine 1% In Ns 8.4%) 0.25 ml IDERM ONETIME PRN PRN Reason: Prior to IV Start Last Admin: 03/09/19 09:09 Dose: 0.25 ml Midazolam HCl (Versed 1 Mg/Ml) Confirm Administered Dose 2 mg .ROUTE .STK-MED ONE Stop: 03/09/19 09:53 Midazolam HCl (Versed 1 Mg/Ml) Confirm Administered Dose 2 mg .ROUTE .STK-MED ONE Stop: 03/09/19 11:18 Midazolam HCl (Versed 1 Mg/Ml) Confirm Administered Dose 2 mg .ROUTE .STK-MED ONE Stop: 03/09/19 11:21 Midazolam HCl (Versed 1 Mg/Ml) Confirm Administered Dose 2 mg .ROUTE .STK-MED ONE Stop: 03/09/19 12:04 Tamsulosin HCl (Flomax) 0.4 mg PO ONETIME ONE Stop: 03/09/19 18:59 Last Admin: 03/09/19 22:00 Dose: 0.4 mg Tranexamic Acid (Cyklokapron) Confirm Administered Dose 1,000 mg .ROUTE .STK- MED ONE Stop: 03/09/19 09:35 Last Admin: 03/09/19 12:28 Dose: 1,000 mg Vancomycin HCl (Vancomycin) Confirm Administered Dose 1 gm .ROUTE .STK-MED ONE Stop: 03/09/19 09:35 Last Admin: 03/09/19 12:27 Dose: 1 gm Vancomycin HCl (Vancomycin) Confirm Administered Dose 1 gm .ROUTE .STK-MED ONE Stop: 03/09/19 10:38 - Exam Wound/Incisions: Dressing Dry and Intact General: Alert, Cooperative, No Acute Distress Lungs: Normal Respiratory Effort Extremities: Other (NVS intact for LLE. Kimmie's negative.) - Problem List Review Problem List Initiated/Reviewed/Updated: Yes - My Orders Last 24 Hours: Active Orders 24 hr Category Date Time Status Patient Status [ADT] Routine ADT 03/09/19 16:46 Active Blood Glucose Check, Bedside [] QIDACANDBED Care 03/09/19 17:50 Inactive Blood Glucose Check, Bedside [] WITHMEALSANDBED Care 03/09/19 17:00 Active CPAP Noctural Home [RT BiPAP/CPAP] [RC] ASDIRECTED Care 03/09/19 17:45 Active Insert Urinary Catheter [OM.PC] Q24H Care 03/09/19 18:45 Ordered RT Aerosol Therapy [RC] ASDIRECTED Care 03/09/19 17:48 Active [employer] Diet [DIET] Diet 03/09/19 Lunch Active Albuterol/Ipratropium [DuoNeb 3.0-0.5 MG/3 ML] Med 03/09/19 17:48 Active 3 ml NEB Q6HRRT PRN Aspirin [Ecotrin] Med 03/10/19 09:00 Active 325 mg PO BID Docusate Sodium [Colace] Med 03/09/19 09:00 Active 100 mg PO BID Insulin Lispro [HumaLOG] Med 03/09/19 22:00 Active See Protocol SUBCUT QIDACANDBED Lisinopril [Prinivil] Med 03/10/19 09:00 Active 40 mg PO DAILY Loratadine [Claritin] Med 03/10/19 09:00 Active 10 mg PO DAILY Metoprolol Tartrate [Lopressor] Med 03/10/19 09:00 Active 150 mg PO DAILY Rosuvastatin [Crestor] Med 03/10/19 09:00 Active 10 mg PO DAILY amLODIPine [Norvasc] Med 03/10/19 09:00 Active 15 mg PO DAILY ceFAZolin [Ancef] 2 gm Med 03/09/19 17:00 Active Premix Bag 1 bag IV Q8H cloNIDine [Catapres] Med 03/09/19 18:00 Active 0.2 mg PO QPM cloNIDine [Catapres] Med 03/10/19 08:00 Active 0.4 mg PO QAM Medication Orders Albuterol/Ipratropium (Duoneb 3.0-0.5 Mg/3 Ml) 3 ml NEB Q6HRRT PRN PRN Reason: wheezing/SOB/cough Amlodipine Besylate (Norvasc) 15 mg PO DAILY [facility] Last Admin: 03/10/19 08:16 Dose: 15 mg Aspirin (Ecotrin) 325 mg PO BID [facility] Last Admin: 03/10/19 08:15 Dose: 325 mg Bisacodyl (Dulcolax) 5 mg PO DAILY PRN PRN Reason: Constipation Clonidine HCl (Catapres) 0.2 mg PO QPM [facility] Last Admin: 03/09/19 18:34 Dose: 0.2 mg Clonidine HCl (Catapres) 0.4 mg PO QAM [facility] Last Admin: 03/10/19 08:16 Dose: 0.4 mg Cyclobenzaprine HCl (Flexeril) 10 mg PO BID PRN PRN Reason: Spasms Last Admin: 03/10/19 08:19 Dose: 10 mg Admin: 03/09/19 16:01 Dose: 10 mg Docusate Sodium (Colace) 100 mg PO BID [facility] Last Admin: 03/10/19 08:15 Dose: 100 mg Admin: 03/09/19 22:00 Dose: 100 mg Admin: 03/09/19 14:19 Dose: Not Given Hydromorphone HCl (Dilaudid) 0.2 mg IVPUSH Q2H PRN PRN Reason: Pain (moderate 4-6) Last Admin: 03/09/19 18:11 Dose: 0.2 mg Admin: 03/09/19 15:59 Dose: 0.2 mg Cefazolin Sodium/Dextrose 2 gm (/ Premix) 50 mls @ 100 mls/hr IV Q8H [facility] Stop: 03/10/19 09:29 Last Admin: 03/10/19 08:17 Dose: 100 mls/hr Infusion: 03/10/19 02:49 Dose: 100 mls/hr Admin: 03/10/19 02:19 Dose: 100 mls/hr Infusion: 03/09/19 16:32 Dose: 100 mls/hr Admin: 03/09/19 16:02 Dose: 100 mls/hr Insulin Human Lispro (Humalog) 0 unit SUBCUT QIDACANDBED [facility]; Protocol Last Admin: 03/10/19 08:17 Dose: 1 units Admin: 03/09/19 22:06 Dose: 2 units Lisinopril (Prinivil) 40 mg PO DAILY [facility] Last Admin: 03/10/19 08:15 Dose: 40 mg Loratadine (Claritin) 10 mg PO DAILY [facility] Last Admin: 03/10/19 08:15 Dose: 10 mg Metoprolol Tartrate (Lopressor) 150 mg PO DAILY [facility] Last Admin: 03/10/19 08:15 Dose: 150 mg Naloxone HCl (Narcan) 0.1 mg IVPUSH Q5M PRN PRN Reason: Oversedation Ondansetron HCl (Zofran) 4 mg IVPUSH Q6H PRN PRN Reason: Nausea/Vomiting Rosuvastatin Calcium (Crestor) 10 mg PO DAILY [facility] Last Admin: 03/10/19 08:15 Dose: 10 mg Senna (Senna) 8.6 mg PO BID PRN PRN Reason: Constipation Sodium Chloride (Saline Flush) 10 ml FLUSH ASDIRECTED PRN PRN Reason: Keep Vein Open Tramadol HCl (Ultram) 50 - 100 mg PO Q4H PRN PRN Reason: Pain Last Admin: 03/10/19 06:16 Dose: 100 mg Admin: 03/10/19 02:19 Dose: 100 mg Admin: 03/09/19 22:00 Dose: 100 mg Admin: 03/09/19 18:13 Dose: 100 mg Admin: 03/09/19 14:22 Dose: 100 mg - Assessment Assessment (Free Text/Narrative):: POD#1 - left ENMA - Plan Plan (Free Text/Narrative):: 1. Hgb 12.4. 2. Medical management per Hospitalist service. 3. Ultram for pain management. 4. Will d/c to home if cleared by Hospitalist service and inpt therapy goals met. The pt's case was discussed with Dr. Powell.
[2019-03-10] MEDS ORDERED: Rosuvastatin 10 MG Tab PO SCH (09:00)
[2019-03-10] MEDS ORDERED: Lisinopril 20 MG Tab PO SCH (09:00)
[2019-03-10] MEDS ORDERED: Loratadine 10 MG Tab PO SCH (09:00)
[2019-03-10] MEDS ORDERED: amLODIPine 10 MG Tab PO SCH (09:00)
[2019-03-10] MEDS ORDERED: Aspirin 325 MG Tab.EC PO SCH (09:00)
[2019-03-10] MEDS ORDERED: Metoprolol Tartrate 100 MG Tab PO SCH (09:00)
[2019-03-10] MEDS ORDERED: Tamsulosin 0.4 MG Cap.ER PO ONE (10:45)
--- NOTE | 2019-03-10 11:00 | PCM48HPAN ---
Post Anesthesia Note - EVALUATION WITHIN 48HRS OF ANESTHETIC Vital Signs in Normal Range: Yes Patient Participated in Evaluation: Yes Respiratory Function Stable: Yes Airway Patent: Yes Cardiovascular Function Stable: Yes Hydration Status Stable: Yes Pain Control Satisfactory: Yes Nausea and Vomiting Control Satisfactory: Yes Mental Status Recovered: Yes
[2019-03-10] MEDS ORDERED: Lidocaine 2% Jelly 10 ML Urojet MUCMEM ONE (12:59)
--- NOTE | 2019-03-10 14:57 | PCM.CONSN ---
- General Info Date of Service: 03/10/19 Admission Dx/Problem (Free Text): Admission Diagnosis/Problem Admission Diagnosis/Problem Osteoarthritis of hip Subjective Update: Fransisco Charlton is a 73 yo male patient of Dr. Powell who is post-operative day 1 of left ENMA. Hospital medicine was consulted for post-operative medical care of the following listed medical conditions. At this time he is resting in bed. Pain is controlled for the most part. He denies any chest pain, shortness of breath, palpitations, nausea, or vomiting. He carries a history of: Hard of hearing, Impaired vision, Sleep Apnea on CPAP with 2L O2 bleed-in, Lung cyst, Osteoarthritis, HLD, Hypoxia, HTN, Hx/O GI Bleed, Gout, Diabetes, CKD stage 2-3 , Diabetic neuropathy, Bilateral carpal tunnel syndrome, 1st degree AV block, Cardiomegaly, CHF, CAD, Obesity. He is a former smoker. Patient is having difficulty with urination. Has had to have 2 straight catheters and has had Flomax 0.4 mg twice a day without benefit. Otherwise he is doing well medically speaking. Patient does have a history of GI bleed, although his does not know where that history came from. She does not recall any gastrointestinal bleeding in the past. - Review of Systems General: Reports: No Symptoms. Denies: Fever HEENT: Reports: No Symptoms. Denies: Contact Lenses Pulmonary: Reports: No Symptoms. Denies: Shortness of Breath, Cough Cardiovascular: Reports: No Symptoms Gastrointestinal: Reports: No Symptoms Genitourinary: Reports: Retention Musculoskeletal: Reports: No Symptoms Skin: Reports: No Symptoms Neurological: Reports: No Symptoms - Patient Data Vitals - Most Recent: Last Vital Signs Temp 99.0 F 03/10/19 11:21 Pulse 63 03/10/19 11:21 Resp 18 03/10/19 11:21 BP 123/64 03/10/19 11:21 Pulse Ox 92 L 03/10/19 11:21 Weight - Most Recent: 238 lb 2 oz I&O - Last 24 Hours: Intake & Output 03/09/19 03/10/19 03/10/19 22:59 06:59 14:59 Intake Total 810 450 Output Total 0 775 Balance 810 -325 Lab Results Last 24 Hours: Laboratory Results - last 24 hr 03/09/19 03/09/19 03/10/19 Range/Units 17:44 21:58 05:15 WBC 11.54 H (4.23-9.07) K/mm3 RBC 4.06 L (4.63-6.08) M/mm3 Hgb 12.4 L (13.7-17.5) gm/L Hct 39.0 L (40.1-51.0) % MCV 96.1 H (79.0-92.2) fl MCH 30.5 (25.7-32.2) pg MCHC 31.8 L (32.2-35.5) g/dl RDW Std Deviation 47.4 H (35.1-43.9) fL Plt Count 197 (163-337) K/mm3 MPV 9.0 L (9.4-12.3) fl Sodium (136-145) mEq/L Potassium (3.5-5.1) mEq/L Chloride (98-107) mEq/L Carbon Dioxide (21-32) mEq/L Anion Gap (5-15) BUN (7-18) mg/dL Creatinine (0.7-1.3) mg/dL Est Cr Clr Drug Dosing mL/min Estimated GFR (MDRD) (>60) mL/min BUN/Creatinine Ratio (14-18) Glucose (83-115) mg/dL POC Glucose 150 H 238 H (83-110) mg/dL Calcium (8.5-10.1) mg/dL Total Bilirubin (0.2-1.0) mg/dL AST (15-37) U/L ALT (16-63) U/L Alkaline Phosphatase (46-116) U/L Total Protein (6.4-8.2) g/dl Albumin (3.4-5.0) g/dl Globulin gm/dL Albumin/Globulin Ratio (1-2) 03/10/19 03/10/19 03/10/19 Range/Units 05:15 06:09 11:03 WBC (4.23-9.07) K/mm3 RBC (4.63-6.08) M/mm3 Hgb (13.7-17.5) gm/L Hct (40.1-51.0) % MCV (79.0-92.2) fl MCH (25.7-32.2) pg MCHC (32.2-35.5) g/dl RDW Std Deviation (35.1-43.9) fL Plt Count (163-337) K/mm3 MPV (9.4-12.3) fl Sodium 136 (136-145) mEq/L Potassium 5.2 H (3.5-5.1) mEq/L Chloride 102 (98-107) mEq/L Carbon Dioxide 29 (21-32) mEq/L Anion Gap 10.2 (5-15) BUN 26 H (7-18) mg/dL Creatinine 1.5 H (0.7-1.3) mg/dL Est Cr Clr Drug Dosing 43.21 mL/min Estimated GFR (MDRD) 46 (>60) mL/min BUN/Creatinine Ratio 17.3 (14-18) Glucose 155 H (83-115) mg/dL POC Glucose 158 H 119 H (83-110) mg/dL Calcium 8.6 (8.5-10.1) mg/dL Total Bilirubin 0.6 (0.2-1.0) mg/dL AST 25 (15-37) U/L ALT 24 (16-63) U/L Alkaline Phosphatase 62 (46-116) U/L Total Protein 6.8 (6.4-8.2) g/dl Albumin 3.3 L (3.4-5.0) g/dl Globulin 3.5 gm/dL Albumin/Globulin Ratio 0.9 L (1-2) Med Orders - Current: Current Medications Albuterol/Ipratropium (Duoneb 3.0-0.5 Mg/3 Ml) 3 ml NEB Q6HRRT PRN PRN Reason: wheezing/SOB/cough Amlodipine Besylate (Norvasc) 15 mg PO DAILY [facility] Last Admin: 03/10/19 08:16 Dose: 15 mg Aspirin (Ecotrin) 325 mg PO BID [facility] Last Admin: 03/10/19 08:15 Dose: 325 mg Bisacodyl (Dulcolax) 5 mg PO DAILY PRN PRN Reason: Constipation Clonidine HCl (Catapres) 0.2 mg PO QPM [facility] Last Admin: 03/09/19 18:34 Dose: 0.2 mg Clonidine HCl (Catapres) 0.4 mg PO QAM [facility] Last Admin: 03/10/19 08:16 Dose: 0.4 mg Cyclobenzaprine HCl (Flexeril) 10 mg PO BID PRN PRN Reason: Spasms Last Admin: 03/10/19 08:19 Dose: 10 mg Docusate Sodium (Colace) 100 mg PO BID [facility] Last Admin: 03/10/19 08:15 Dose: 100 mg Hydromorphone HCl (Dilaudid) 0.2 mg IVPUSH Q2H PRN PRN Reason: Pain (moderate 4-6) Last Admin: 03/09/19 18:11 Dose: 0.2 mg Insulin Human Lispro (Humalog) 0 unit SUBCUT QIDACANDBED [facility]; Protocol Last Admin: 03/10/19 11:19 Dose: Not Given Lisinopril (Prinivil) 40 mg PO DAILY [facility] Last Admin: 03/10/19 08:15 Dose: 40 mg Loratadine (Claritin) 10 mg PO DAILY [facility] Last Admin: 03/10/19 08:15 Dose: 10 mg Metoprolol Tartrate (Lopressor) 150 mg PO DAILY [facility] Last Admin: 03/10/19 08:15 Dose: 150 mg Naloxone HCl (Narcan) 0.1 mg IVPUSH Q5M PRN PRN Reason: Oversedation Ondansetron HCl (Zofran) 4 mg IVPUSH Q6H PRN PRN Reason: Nausea/Vomiting Rosuvastatin Calcium (Crestor) 10 mg PO DAILY [facility] Last Admin: 03/10/19 08:15 Dose: 10 mg Senna (Senna) 8.6 mg PO BID PRN PRN Reason: Constipation Sodium Chloride (Saline Flush) 10 ml FLUSH ASDIRECTED PRN PRN Reason: Keep Vein Open Tramadol HCl (Ultram) 50 - 100 mg PO Q4H PRN PRN Reason: Pain Last Admin: 03/10/19 11:18 Dose: 100 mg Discontinued Medications Albuterol (Proventil Neb Soln) 2.5 mg NEB ONETIME ONE Stop: 03/09/19 00:02 Last Admin: 03/09/19 10:10 Dose: 2.5 mg Albuterol (Proventil Neb Soln) Confirm Administered Dose 2.5 mg .ROUTE .STK-MED ONE Stop: 03/09/19 10:09 Last Admin: 03/09/19 11:18 Dose: Not Given Bupivacaine HCl (Marcaine 0.25%) Confirm Administered Dose 30 ml .ROUTE .STK- MED ONE Stop: 03/09/19 09:36 Last Admin: 03/09/19 12:26 Dose: 30 ml Cefazolin Sodium (Ancef) Confirm Administered Dose 2 gm .ROUTE .STK-MED ONE Stop: 03/09/19 09:35 Last Admin: 03/09/19 12:22 Dose: 2 gm Cefazolin Sodium (Ancef) Confirm Administered Dose 1 gm .ROUTE .STK-MED ONE Stop: 03/09/19 09:53 Cefazolin Sodium (Ancef) Confirm Administered Dose 1 gm .ROUTE .STK-MED ONE Stop: 03/09/19 09:53 Epinephrine HCl 0.3 mg/Cefuroxime Sodium 750 mg/Sodium Chloride 27.9 ml 0 mg .XX ONETIME ONE Stop: 03/09/19 11:31 Last Admin: 03/09/19 14:19 Dose: Not Given Ephedrine Sulfate (Ephedrine In Ns) Confirm Administered Dose 25 mg .ROUTE .STK- MED ONE Stop: 03/09/19 11:26 Fentanyl (Sublimaze) Confirm Administered Dose 100 mcg .ROUTE .STK-MED ONE Stop: 03/09/19 09:52 Lactated Ringer's (Ringers, Lactated) 1,000 mls @ 125 mls/hr IV ASDIRECTED [facility] Last Admin: 03/09/19 09:09 Dose: 125 mls/hr Cefazolin Sodium/Dextrose 2 gm (/ Premix) 50 mls @ 100 mls/hr IV Q8H [facility] Stop: 03/10/19 09:29 Last Admin: 03/10/19 08:17 Dose: 100 mls/hr Lactated Ringer's (Ringers, Lactated) Confirm Administered Dose 1,000 mls @ as directed .ROUTE .STK-MED ONE Stop: 03/09/19 11:40 Iodine (Iodine 2% Mild Tincture) Confirm Administered Dose 30 ml .ROUTE .STK- MED ONE Stop: 03/09/19 09:36 Last Admin: 03/09/19 12:21 Dose: 18 ml Lidocaine HCl (Xylocaine 2% Jelly) 10 ml MUCMEM ONETIME ONE Stop: 03/10/19 13:00 Lidocaine/Sodium Bicarbonate (Buffered Lidocaine 1% In Ns 8.4%) 0.25 ml IDERM ONETIME PRN PRN Reason: Prior to IV Start Last Admin: 03/09/19 09:09 Dose: 0.25 ml Midazolam HCl (Versed 1 Mg/Ml) Confirm Administered Dose 2 mg .ROUTE .STK-MED ONE Stop: 03/09/19 09:53 Midazolam HCl (Versed 1 Mg/Ml) Confirm Administered Dose 2 mg .ROUTE .STK-MED ONE Stop: 03/09/19 11:18 Midazolam HCl (Versed 1 Mg/Ml) Confirm Administered Dose 2 mg .ROUTE .STK-MED ONE Stop: 03/09/19 11:21 Midazolam HCl (Versed 1 Mg/Ml) Confirm Administered Dose 2 mg .ROUTE .STK-MED ONE Stop: 03/09/19 12:04 Tamsulosin HCl (Flomax) 0.4 mg PO ONETIME ONE Stop: 03/09/19 18:59 Last Admin: 03/09/19 22:00 Dose: 0.4 mg Tamsulosin HCl (Flomax) 0.4 mg PO ONETIME ONE Stop: 03/10/19 10:46 Last Admin: 03/10/19 10:58 Dose: 0.4 mg Tranexamic Acid (Cyklokapron) Confirm Administered Dose 1,000 mg .ROUTE .STK- MED ONE Stop: 03/09/19 09:35 Last Admin: 03/09/19 12:28 Dose: 1,000 mg Vancomycin HCl (Vancomycin) Confirm Administered Dose 1 gm .ROUTE .STK-MED ONE Stop: 03/09/19 09:35 Last Admin: 03/09/19 12:27 Dose: 1 gm Vancomycin HCl (Vancomycin) Confirm Administered Dose 1 gm .ROUTE .STK-MED ONE Stop: 03/09/19 10:38 - Exam Quality Assessment: No: Supplemental Oxygen General: Alert, Oriented HEENT: Pupils Equal Neck: Supple Lungs: Clear to Auscultation, Normal Respiratory Effort Cardiovascular: Regular Rate, Regular Rhythm GI/Abdominal Exam: Normal Bowel Sounds, Soft, Non-Tender, No Distention Skin: Warm, Dry, Intact Neurological: No New Focal Deficit Psy/Mental Status: Alert, Normal Affect, Normal Mood Consult PN Assessment/Plan POD#: 1 Procedures: Procedures ASSAY OF BLOOD/URIC ACID (12/31/18) ASSAY OF PARATHORMONE (12/31/18) ASSAY OF PROTEIN URINE (12/31/18) ASSAY OF URINE CREATININE (12/31/18) COMPLETE CBC AUTOMATED (01/09/18) COMPLETE CBC W/AUTO DIFF WBC (12/31/18) EXCISE WRIST TENDON SHEATH (12/18/18) GLUCOSE BLOOD TEST (12/18/18) INCISION OF SPINAL NERVE (12/18/18) REMOVE WRIST TENDON LESION (12/18/18) RENAL FUNCTION PANEL (12/31/18) ROUTINE VENIPUNCTURE (12/31/18) TISSUE EXAM BY PATHOLOGIST (12/18/18) URINALYSIS AUTO W/SCOPE (12/31/18) VITAMIN D 25 HYDROXY (12/31/18) Problem List Initiated/Reviewed/Updated: Yes My Orders Last 24 Hours: My Active Orders 03/10/19 09:00 Lisinopril [Prinivil] 40 mg PO DAILY Plan: Acute: S/P left total hip arthroplasty - post-operative day 1 -DVT prophylaxis and pain management per primary care team -PT/OT -IS/RT -Monitor oxygen saturation -Titrate oxygen as needed -Continue home CPAP -Notes from PCP Pre-op reviewed -Home medications reviewed -Vital signs stable -Telemetry -Monitor labs -Pre-operative Hgb was 13.1; postop day 1-12.4 Kidney functions 78 and GFR -Pre-operative creatinine 1.29 Osteoarthritis of left hip -Pain management per primary care team Post-operative urinary retention -Urinary retention with straight catheter 2. -Ott placed and have him follow-up with urology. -Patient was placed on Macrobid 100 mg twice a day. Chronic: Hard of hearing Impaired vision Sleep Apnea on CPAP with 2L O2 bleed-in Lung cyst Osteoarthritis HLD Hypoxia HTN Hx/O GI Bleed Gout Diabetes CKD stage 2-3 Diabetic neuropathy Bilateral carpal tunnel syndrome 1st degree AV block Cardiomegaly CHF CAD Obesity Plan: Medically patient is stable for discharge. He is a full code. His PCP is Dr. Wright Thank you for allowing us to participate in the care of this patient!!
--- NOTE | 2019-03-10 15:22 | PCM.SURGPN ---
- General Info Date of Service: 03/10/19 POD#: 1 Functional Status: Reports: Pain Controlled, Tolerating Diet, Ambulating, Incentive Spirometry, Other (The pt has been unable to urinate. Straight cath has been completed. The pt states he is doing well and would like to return home.) - Patient Data Vitals - Most Recent: Last Vital Signs Temp 99.0 F 03/10/19 11:21 Pulse 63 03/10/19 11:21 Resp 18 03/10/19 11:21 BP 123/64 03/10/19 11:21 Pulse Ox 92 L 03/10/19 11:21 Weight - Most Recent: 238 lb 2 oz I&O - Last 24 Hours: Intake & Output 03/10/19 03/10/19 03/10/19 06:59 14:59 22:59 Intake Total 450 Output Total 775 Balance -325 Lab Results Last 24 Hrs: Laboratory Results - last 24 hr 03/09/19 03/09/19 03/10/19 Range/Units 17:44 21:58 05:15 WBC 11.54 H (4.23-9.07) K/mm3 RBC 4.06 L (4.63-6.08) M/mm3 Hgb 12.4 L (13.7-17.5) gm/L Hct 39.0 L (40.1-51.0) % MCV 96.1 H (79.0-92.2) fl MCH 30.5 (25.7-32.2) pg MCHC 31.8 L (32.2-35.5) g/dl RDW Std Deviation 47.4 H (35.1-43.9) fL Plt Count 197 (163-337) K/mm3 MPV 9.0 L (9.4-12.3) fl Sodium (136-145) mEq/L Potassium (3.5-5.1) mEq/L Chloride (98-107) mEq/L Carbon Dioxide (21-32) mEq/L Anion Gap (5-15) BUN (7-18) mg/dL Creatinine (0.7-1.3) mg/dL Est Cr Clr Drug Dosing mL/min Estimated GFR (MDRD) (>60) mL/min BUN/Creatinine Ratio (14-18) Glucose (83-115) mg/dL POC Glucose 150 H 238 H (83-110) mg/dL Calcium (8.5-10.1) mg/dL Total Bilirubin (0.2-1.0) mg/dL AST (15-37) U/L ALT (16-63) U/L Alkaline Phosphatase (46-116) U/L Total Protein (6.4-8.2) g/dl Albumin (3.4-5.0) g/dl Globulin gm/dL Albumin/Globulin Ratio (1-2) 03/10/19 03/10/19 03/10/19 Range/Units 05:15 06:09 11:03 WBC (4.23-9.07) K/mm3 RBC (4.63-6.08) M/mm3 Hgb (13.7-17.5) gm/L Hct (40.1-51.0) % MCV (79.0-92.2) fl MCH (25.7-32.2) pg MCHC (32.2-35.5) g/dl RDW Std Deviation (35.1-43.9) fL Plt Count (163-337) K/mm3 MPV (9.4-12.3) fl Sodium 136 (136-145) mEq/L Potassium 5.2 H (3.5-5.1) mEq/L Chloride 102 (98-107) mEq/L Carbon Dioxide 29 (21-32) mEq/L Anion Gap 10.2 (5-15) BUN 26 H (7-18) mg/dL Creatinine 1.5 H (0.7-1.3) mg/dL Est Cr Clr Drug Dosing 43.21 mL/min Estimated GFR (MDRD) 46 (>60) mL/min BUN/Creatinine Ratio 17.3 (14-18) Glucose 155 H (83-115) mg/dL POC Glucose 158 H 119 H (83-110) mg/dL Calcium 8.6 (8.5-10.1) mg/dL Total Bilirubin 0.6 (0.2-1.0) mg/dL AST 25 (15-37) U/L ALT 24 (16-63) U/L Alkaline Phosphatase 62 (46-116) U/L Total Protein 6.8 (6.4-8.2) g/dl Albumin 3.3 L (3.4-5.0) g/dl Globulin 3.5 gm/dL Albumin/Globulin Ratio 0.9 L (1-2) Med Orders - Current: Current Medications Albuterol/Ipratropium (Duoneb 3.0-0.5 Mg/3 Ml) 3 ml NEB Q6HRRT PRN PRN Reason: wheezing/SOB/cough Amlodipine Besylate (Norvasc) 15 mg PO DAILY [facility] Last Admin: 03/10/19 08:16 Dose: 15 mg Aspirin (Ecotrin) 325 mg PO BID [facility] Last Admin: 03/10/19 08:15 Dose: 325 mg Bisacodyl (Dulcolax) 5 mg PO DAILY PRN PRN Reason: Constipation Clonidine HCl (Catapres) 0.2 mg PO QPM [facility] Last Admin: 03/09/19 18:34 Dose: 0.2 mg Clonidine HCl (Catapres) 0.4 mg PO QAM [facility] Last Admin: 03/10/19 08:16 Dose: 0.4 mg Cyclobenzaprine HCl (Flexeril) 10 mg PO BID PRN PRN Reason: Spasms Last Admin: 03/10/19 08:19 Dose: 10 mg Docusate Sodium (Colace) 100 mg PO BID [facility] Last Admin: 03/10/19 08:15 Dose: 100 mg Hydromorphone HCl (Dilaudid) 0.2 mg IVPUSH Q2H PRN PRN Reason: Pain (moderate 4-6) Last Admin: 03/09/19 18:11 Dose: 0.2 mg Insulin Human Lispro (Humalog) 0 unit SUBCUT QIDACANDBED [facility]; Protocol Last Admin: 03/10/19 11:19 Dose: Not Given Lisinopril (Prinivil) 40 mg PO DAILY [facility] Last Admin: 03/10/19 08:15 Dose: 40 mg Loratadine (Claritin) 10 mg PO DAILY [facility] Last Admin: 03/10/19 08:15 Dose: 10 mg Metoprolol Tartrate (Lopressor) 150 mg PO DAILY [facility] Last Admin: 03/10/19 08:15 Dose: 150 mg Naloxone HCl (Narcan) 0.1 mg IVPUSH Q5M PRN PRN Reason: Oversedation Ondansetron HCl (Zofran) 4 mg IVPUSH Q6H PRN PRN Reason: Nausea/Vomiting Rosuvastatin Calcium (Crestor) 10 mg PO DAILY [facility] Last Admin: 03/10/19 08:15 Dose: 10 mg Senna (Senna) 8.6 mg PO BID PRN PRN Reason: Constipation Sodium Chloride (Saline Flush) 10 ml FLUSH ASDIRECTED PRN PRN Reason: Keep Vein Open Tramadol HCl (Ultram) 50 - 100 mg PO Q4H PRN PRN Reason: Pain Last Admin: 03/10/19 11:18 Dose: 100 mg Discontinued Medications Albuterol (Proventil Neb Soln) 2.5 mg NEB ONETIME ONE Stop: 03/09/19 00:02 Last Admin: 03/09/19 10:10 Dose: 2.5 mg Albuterol (Proventil Neb Soln) Confirm Administered Dose 2.5 mg .ROUTE .STK-MED ONE Stop: 03/09/19 10:09 Last Admin: 03/09/19 11:18 Dose: Not Given Bupivacaine HCl (Marcaine 0.25%) Confirm Administered Dose 30 ml .ROUTE .STK- MED ONE Stop: 03/09/19 09:36 Last Admin: 03/09/19 12:26 Dose: 30 ml Cefazolin Sodium (Ancef) Confirm Administered Dose 2 gm .ROUTE .STK-MED ONE Stop: 03/09/19 09:35 Last Admin: 03/09/19 12:22 Dose: 2 gm Cefazolin Sodium (Ancef) Confirm Administered Dose 1 gm .ROUTE .STK-MED ONE Stop: 03/09/19 09:53 Cefazolin Sodium (Ancef) Confirm Administered Dose 1 gm .ROUTE .STK-MED ONE Stop: 03/09/19 09:53 Epinephrine HCl 0.3 mg/Cefuroxime Sodium 750 mg/Sodium Chloride 27.9 ml 0 mg .XX ONETIME ONE Stop: 03/09/19 11:31 Last Admin: 03/09/19 14:19 Dose: Not Given Ephedrine Sulfate (Ephedrine In Ns) Confirm Administered Dose 25 mg .ROUTE .STK- MED ONE Stop: 03/09/19 11:26 Fentanyl (Sublimaze) Confirm Administered Dose 100 mcg .ROUTE .STK-MED ONE Stop: 03/09/19 09:52 Lactated Ringer's (Ringers, Lactated) 1,000 mls @ 125 mls/hr IV ASDIRECTED [facility] Last Admin: 03/09/19 09:09 Dose: 125 mls/hr Cefazolin Sodium/Dextrose 2 gm (/ Premix) 50 mls @ 100 mls/hr IV Q8H [facility] Stop: 03/10/19 09:29 Last Admin: 03/10/19 08:17 Dose: 100 mls/hr Lactated Ringer's (Ringers, Lactated) Confirm Administered Dose 1,000 mls @ as directed .ROUTE .STK-MED ONE Stop: 03/09/19 11:40 Iodine (Iodine 2% Mild Tincture) Confirm Administered Dose 30 ml .ROUTE .STK- MED ONE Stop: 03/09/19 09:36 Last Admin: 03/09/19 12:21 Dose: 18 ml Lidocaine HCl (Xylocaine 2% Jelly) 10 ml MUCMEM ONETIME ONE Stop: 03/10/19 13:00 Lidocaine/Sodium Bicarbonate (Buffered Lidocaine 1% In Ns 8.4%) 0.25 ml IDERM ONETIME PRN PRN Reason: Prior to IV Start Last Admin: 03/09/19 09:09 Dose: 0.25 ml Midazolam HCl (Versed 1 Mg/Ml) Confirm Administered Dose 2 mg .ROUTE .STK-MED ONE Stop: 03/09/19 09:53 Midazolam HCl (Versed 1 Mg/Ml) Confirm Administered Dose 2 mg .ROUTE .STK-MED ONE Stop: 03/09/19 11:18 Midazolam HCl (Versed 1 Mg/Ml) Confirm Administered Dose 2 mg .ROUTE .STK-MED ONE Stop: 03/09/19 11:21 Midazolam HCl (Versed 1 Mg/Ml) Confirm Administered Dose 2 mg .ROUTE .STK-MED ONE Stop: 03/09/19 12:04 Tamsulosin HCl (Flomax) 0.4 mg PO ONETIME ONE Stop: 03/09/19 18:59 Last Admin: 03/09/19 22:00 Dose: 0.4 mg Tamsulosin HCl (Flomax) 0.4 mg PO ONETIME ONE Stop: 03/10/19 10:46 Last Admin: 03/10/19 10:58 Dose: 0.4 mg Tranexamic Acid (Cyklokapron) Confirm Administered Dose 1,000 mg .ROUTE .STK- MED ONE Stop: 03/09/19 09:35 Last Admin: 03/09/19 12:28 Dose: 1,000 mg Vancomycin HCl (Vancomycin) Confirm Administered Dose 1 gm .ROUTE .STK-MED ONE Stop: 03/09/19 09:35 Last Admin: 03/09/19 12:27 Dose: 1 gm Vancomycin HCl (Vancomycin) Confirm Administered Dose 1 gm .ROUTE .STK-MED ONE Stop: 03/09/19 10:38 - Exam Wound/Incisions: Dressing Dry and Intact General: Alert, Cooperative, No Acute Distress Lungs: Normal Respiratory Effort Extremities: Other (NVS intact for LLE. Left thigh soft.) - Problem List Review Problem List Initiated/Reviewed/Updated: Yes - My Orders Last 24 Hours: Active Orders 24 hr Category Date Time Status Patient Status [ADT] Routine ADT 03/09/19 16:46 Active Blood Glucose Check, Bedside [] QIDACANDBED Care 03/09/19 17:50 Inactive Blood Glucose Check, Bedside [RC] WITHMEALSANDBED Care 03/09/19 17:00 Active CPAP Noctural Home [RT BiPAP/CPAP] [RC] ASDIRECTED Care 03/09/19 17:45 Active Insert Ott Catheter [Insert Urinary Catheter] [OM.PC] Care 03/10/19 15:30 Ordered Q24H Insert Urinary Catheter [OM.PC] Q24H Care 03/09/19 18:45 Ordered RT Aerosol Therapy [RC] ASDIRECTED Care 03/09/19 17:48 Active Urinary Catheter Assessment [RC] ASDIRECTED Care 03/10/19 15:17 Active Albuterol/Ipratropium [DuoNeb 3.0-0.5 MG/3 ML] Med 03/09/19 17:48 Active 3 ml NEB Q6HRRT PRN Aspirin [Ecotrin] Med 03/10/19 09:00 Active 325 mg PO BID Insulin Lispro [HumaLOG] Med 03/09/19 22:00 Active See Protocol SUBCUT QIDACANDBED Lisinopril [Prinivil] Med 03/10/19 09:00 Active 40 mg PO DAILY Loratadine [Claritin] Med 03/10/19 09:00 Active 10 mg PO DAILY Metoprolol Tartrate [Lopressor] Med 03/10/19 09:00 Active 150 mg PO DAILY Rosuvastatin [Crestor] Med 03/10/19 09:00 Active 10 mg PO DAILY amLODIPine [Norvasc] Med 03/10/19 09:00 Active 15 mg PO DAILY cloNIDine [Catapres] Med 03/09/19 18:00 Active 0.2 mg PO QPM cloNIDine [Catapres] Med 03/10/19 08:00 Active 0.4 mg PO QAM Medication Orders Albuterol/Ipratropium (Duoneb 3.0-0.5 Mg/3 Ml) 3 ml NEB Q6HRRT PRN PRN Reason: wheezing/SOB/cough Amlodipine Besylate (Norvasc) 15 mg PO DAILY [facility] Last Admin: 03/10/19 08:16 Dose: 15 mg Aspirin (Ecotrin) 325 mg PO BID [facility] Last Admin: 03/10/19 08:15 Dose: 325 mg Bisacodyl (Dulcolax) 5 mg PO DAILY PRN PRN Reason: Constipation Clonidine HCl (Catapres) 0.2 mg PO QPM [facility] Last Admin: 03/09/19 18:34 Dose: 0.2 mg Clonidine HCl (Catapres) 0.4 mg PO QAM [facility] Last Admin: 03/10/19 08:16 Dose: 0.4 mg Cyclobenzaprine HCl (Flexeril) 10 mg PO BID PRN PRN Reason: Spasms Last Admin: 03/10/19 08:19 Dose: 10 mg Admin: 03/09/19 16:01 Dose: 10 mg Docusate Sodium (Colace) 100 mg PO BID [facility] Last Admin: 03/10/19 08:15 Dose: 100 mg Admin: 03/09/19 22:00 Dose: 100 mg Admin: 03/09/19 14:19 Dose: Not Given Hydromorphone HCl (Dilaudid) 0.2 mg IVPUSH Q2H PRN PRN Reason: Pain (moderate 4-6) Last Admin: 03/09/19 18:11 Dose: 0.2 mg Admin: 03/09/19 15:59 Dose: 0.2 mg Insulin Human Lispro (Humalog) 0 unit SUBCUT QIDACANDBED [facility]; Protocol Last Admin: 03/10/19 11:19 Dose: Not Given Admin: 03/10/19 08:17 Dose: 1 units Admin: 03/09/19 22:06 Dose: 2 units Lisinopril (Prinivil) 40 mg PO DAILY [facility] Last Admin: 03/10/19 08:15 Dose: 40 mg Loratadine (Claritin) 10 mg PO DAILY [facility] Last Admin: 03/10/19 08:15 Dose: 10 mg Metoprolol Tartrate (Lopressor) 150 mg PO DAILY [facility] Last Admin: 03/10/19 08:15 Dose: 150 mg Naloxone HCl (Narcan) 0.1 mg IVPUSH Q5M PRN PRN Reason: Oversedation Ondansetron HCl (Zofran) 4 mg IVPUSH Q6H PRN PRN Reason: Nausea/Vomiting Rosuvastatin Calcium (Crestor) 10 mg PO DAILY [facility] Last Admin: 03/10/19 08:15 Dose: 10 mg Senna (Senna) 8.6 mg PO BID PRN PRN Reason: Constipation Sodium Chloride (Saline Flush) 10 ml FLUSH ASDIRECTED PRN PRN Reason: Keep Vein Open Tramadol HCl (Ultram) 50 - 100 mg PO Q4H PRN PRN Reason: Pain Last Admin: 03/10/19 11:18 Dose: 100 mg Admin: 03/10/19 06:16 Dose: 100 mg Admin: 03/10/19 02:19 Dose: 100 mg Admin: 03/09/19 22:00 Dose: 100 mg Admin: 03/09/19 18:13 Dose: 100 mg Admin: 03/09/19 14:22 Dose: 100 mg - Assessment Assessment (Free Text/Narrative):: POD#1 - left ENMA - Plan Plan (Free Text/Narrative):: 1. Hgb 12.4. 2. 325mg ASA PO BID. Discussed with Hospitalist service and will provide PPI therapy. 3. Urinary retention being monitored by Hospitalist service. Ott cath will be placed and pt will f/u with PCP. Macrobid rx provided. 4. The pt is to follow-up with PCP for post-op care of medical diagnoses and Ott cath placement. The pt's case was discussed with Dr. Powell.
--- NOTE | 2019-03-11 09:24 | PCM.DCSUM1 ---
Discharge Summary - Hospital Course Brief History: Fransisco is a 73 yo male who underwent left ENMA with Dr. Powell on . The procedure was completed under spinal anesthesia with MAC. The pt tolerated the procedure well and was admitted to the Medical-Surgical Unit. The pt was admitted under inpatient status due to numerous co-morbidities requiring close monitoring. Blood pressures, blood glucose, renal function, electrolytes, hydration status, and oxygen levels were monitored. The pt's Hospital course was remarkable for urinary retention requiring straight catheterization and then placement of indwelling urinary catheter. Due to catheter placement, the pt was discharged on Macrobid. Medical management was provided by the Hospitalist service. The pt participated in P.T. and O.T. and progressed well. He was allowed to WBAT and used a FWW for mobility. ENMA precautions were followed. The pt's surgical wound was dressed with a Mepilex dressing and remained clean and dry. On POD#1, the pt was started on 325mg ASA BID for VTE prophylaxis. PPI therapy was initiated. The pt used TEDs and SCDs also. On POD#1, the pt's hemoglobin was 12.4 and renal function was stable. On POD#1, the pt was deemed appropriate for discharge to home with his . - Discharge Data Discharge Date: 03/10/19 Discharge Disposition: Home, Self-Care 01 Condition: Good - Patient Summary/Data Consults: Consultations 03/09/19 07:25 OT Evaluation and Treatment [CONS] Routine PT Evaluation and Treatment [CONS] Routine 03/09/19 07:26 Consult to Physician [CONS] Routine - Patient Instructions Diet: Usual Diet as Tolerated Activity: Apply Ice, As Tolerated, Elevate Extremity, Full Weight Bearing Activity, Other: Follow the total hip precautions. Driving: Do Not Drive Showering/Bathing: May Shower Wound/Incision Care: Keep Operative Site/Wound Site Clean and Dry, Do NOT Change Dressing Notify Provider of: Fever, Increased Pain, Swelling and Redness, Drainage, Nausea and/or Vomiting Other/Special Instructions: Please get up and moving around EVERY HOUR while awake. This helps to prevent blood clots. Please use your walker and have help with mobility as needed. Take a short walk in your home every hour while awake. Please take 325mg Aspirin TWICE daily. The aspirin is being used for blood clot prevention and not for pain management so please do not miss a dose of the medication. IF ALLOWED BY YOUR PRIMARY DOCTOR, you could use a medication like Zantac or Pepcid and a medication like Prilosec or Nexium to protect your stomach while you are using the aspirin. Please call your primary doctor to discuss this further. At home, please complete the exercises that you learned during the Hospital stay. Schedule for physical therapy. Use the pain medication as needed. The medication may cause drowsiness and constipation. Contact your primary care provider for instructions if you are constipated. You may use a stool softener like docusate sodium or Colace 100mg twice daily for constipation. Increase your water and fiber intake while you are using the pain medication. Discontinue use of the pain medication as soon as able. Please do not use other medications that may cause drowsiness (other pain medications, anxiety pills, cold medications, sleeping pills, etc) while using the prescription pain medication. Do not use alcohol while using the pain medication. You may use acetaminophen or Tylenol for pain management, however, please ensure you are not using over 4000 mg or 4 grams of acetaminophen per day from all sources. Your pain medication has 325mg of acetaminophen per tablet. Please do not use ibuprofen (Motrin, Advil) or naproxen (Aleve) for pain management as this is not allowed by your primary doctor due to your kidney function. Wear the TEE hose during the day and you may remove these at night. Elevate the limb to decrease swelling. Place ice to the area often. Place a towel between your skin and the blue pad. Use the incentive spirometer often. Take deep breaths throughout the day. Please keep the dressing in place until follow-up. Notify the Clinic if the dressing becomes saturated. Please closely monitor your blood sugars and notify your primary care provider with abnormal values. Elevated blood sugars increases the risk of infection. Please schedule a follow-up with your primary doctor after surgery to ensure your kidneys are tolerating the medications and to discuss your blood sugars. Call the Clinic with questions or concerns - [phone]. - Discharge Plan *PRESCRIPTION DRUG MONITORING PROGRAM REVIEWED*: No *COPY OF PRESCRIPTION DRUG MONITORING REPORT IN PATIENT KELLEY: No Prescriptions/Med Rec: Aspirin [Ecotrin EC] 325 mg PO BID #70 tab.ec Nitrofurantoin Monohyd/M-Cryst [Macrobid 100 mg Capsule] 100 mg PO BID #20 capsule Pantoprazole Sodium [Protonix] 40 mg PO QAM #30 tablet. traMADol [Ultram] 50 - 100 mg PO Q8H PRN #60 tab PRN Reason: Pain Home Medications: Home Meds Allopurinol [Zyloprim] 300 mg PO Q48H 12/17/18 [History] Furosemide [Lasix] 40 mg PO TUTHSA 12/17/18 [History] Furosemide [Lasix] 80 mg PO MOWEFR 12/17/18 [History] Lisinopril 40 mg PO BID 12/17/18 [History] Metoprolol Tartrate 150 mg PO DAILY 12/17/18 [History] Spironolactone [Aldactone] 25 mg PO DAILY 12/17/18 [History] amLODIPine Besylate [Norvasc] 15 mg PO DAILY 12/17/18 [History] atorvaSTATin Calcium [Atorvastatin Calcium] 40 mg PO DAILY 12/17/18 [History] cloNIDine HCl [Catapres] 0.2 mg PO QPM 12/17/18 [History] cloNIDine HCl [Catapres] 0.4 mg PO QAM 12/17/18 [History] metFORMIN [Glucophage XR] 500 mg PO DAILY 12/17/18 [History] Cetirizine HCl [Zyrtec] 10 mg PO DAILY 03/06/19 [History] Fluticasone Propionate [Flonase] 1 dose NASBOTH BEDTIME 03/06/19 [History] Aspirin [Ecotrin EC] 325 mg PO BID #70 tab.ec 03/10/19 [Rx] Bisacodyl [Dulcolax] 5 mg PO DAILY PRN tablet 03/10/19 [Rx] Docusate Sodium [Colace] 100 mg PO BID cap 03/10/19 [Rx] Nitrofurantoin Monohyd/M-Cryst [Macrobid 100 mg Capsule] 100 mg PO BID #20 capsule 03/10/19 [Rx] Pantoprazole Sodium [Protonix] 40 mg PO QAM #30 tablet. 03/10/19 [Rx] Sennosides [Senna] 8.6 mg PO BID PRN tablet 03/10/19 [Rx] traMADol [Ultram] 50 - 100 mg PO Q8H PRN #60 tab 03/10/19 [Rx] Patient Handouts: Indwelling Urinary Catheter Care, Adult, [id number] Referrals: Tasia Heath PA-C [Physician [facility]] - 03/18/19 9:45 am (03/18/1946 this appointment will be in [place] with Dr. Powell 03/24/19 1100 this appointment is in [place] with Tasia 04/22/19944 this appointment is in [place] with Dr. Powell) - Discharge Summary/Plan Comment DC Time >30 min.: No - Patient Data Vitals - Most Recent: Last Vital Signs Temp 99.0 F 03/10/19 11:21 Pulse 63 03/10/19 11:21 Resp 18 03/10/19 11:21 BP 123/64 03/10/19 11:21 Pulse Ox 92 L 03/10/19 11:21 Weight - Most Recent: 238 lb 2 oz I&O - Last 24 hours: Intake & Output 03/10/19 03/11/19 03/11/19 22:59 06:59 14:59 Intake Total 1690 Output Total 750 Balance 940 Lab Results - Last 24 hrs: Laboratory Results - last 24 hr 03/10/19 Range/Units 11:03 POC Glucose 119 H (83-110) mg/dL Med Orders - Current: Current Medications Discontinued Medications Albuterol (Proventil Neb Soln) 2.5 mg NEB ONETIME ONE Stop: 03/09/19 00:02 Last Admin: 03/09/19 10:10 Dose: 2.5 mg Albuterol (Proventil Neb Soln) Confirm Administered Dose 2.5 mg .ROUTE .STK-MED ONE Stop: 03/09/19 10:09 Last Admin: 03/09/19 11:18 Dose: Not Given Albuterol/Ipratropium (Duoneb 3.0-0.5 Mg/3 Ml) 3 ml NEB Q6HRRT PRN PRN Reason: wheezing/SOB/cough Amlodipine Besylate (Norvasc) 15 mg PO DAILY [facility] Last Admin: 03/10/19 08:16 Dose: 15 mg Aspirin (Ecotrin) 325 mg PO BID [facility] Last Admin: 03/10/19 08:15 Dose: 325 mg Bisacodyl (Dulcolax) 5 mg PO DAILY PRN PRN Reason: Constipation Bupivacaine HCl (Marcaine 0.25%) Confirm Administered Dose 30 ml .ROUTE .STK- MED ONE Stop: 03/09/19 09:36 Last Admin: 03/09/19 12:26 Dose: 30 ml Cefazolin Sodium (Ancef) Confirm Administered Dose 2 gm .ROUTE .STK-MED ONE Stop: 03/09/19 09:35 Last Admin: 03/09/19 12:22 Dose: 2 gm Cefazolin Sodium (Ancef) Confirm Administered Dose 1 gm .ROUTE .STK-MED ONE Stop: 03/09/19 09:53 Cefazolin Sodium (Ancef) Confirm Administered Dose 1 gm .ROUTE .STK-MED ONE Stop: 03/09/19 09:53 Clonidine HCl (Catapres) 0.2 mg PO QPM [facility] Last Admin: 03/09/19 18:34 Dose: 0.2 mg Clonidine HCl (Catapres) 0.4 mg PO QAM [facility] Last Admin: 03/10/19 08:16 Dose: 0.4 mg Epinephrine HCl 0.3 mg/Cefuroxime Sodium 750 mg/Sodium Chloride 27.9 ml 0 mg .XX ONETIME ONE Stop: 03/09/19 11:31 Last Admin: 03/09/19 14:19 Dose: Not Given Cyclobenzaprine HCl (Flexeril) 10 mg PO BID PRN PRN Reason: Spasms Last Admin: 03/10/19 08:19 Dose: 10 mg Docusate Sodium (Colace) 100 mg PO BID [facility] Last Admin: 03/10/19 08:15 Dose: 100 mg Ephedrine Sulfate (Ephedrine In Ns) Confirm Administered Dose 25 mg .ROUTE .STK- MED ONE Stop: 03/09/19 11:26 Fentanyl (Sublimaze) Confirm Administered Dose 100 mcg .ROUTE .STK-MED ONE Stop: 03/09/19 09:52 Hydromorphone HCl (Dilaudid) 0.2 mg IVPUSH Q2H PRN PRN Reason: Pain (moderate 4-6) Last Admin: 03/09/19 18:11 Dose: 0.2 mg Lactated Ringer's (Ringers, Lactated) 1,000 mls @ 125 mls/hr IV ASDIRECTED [facility] Last Admin: 03/09/19 09:09 Dose: 125 mls/hr Cefazolin Sodium/Dextrose 2 gm (/ Premix) 50 mls @ 100 mls/hr IV Q8H [facility] Stop: 03/10/19 09:29 Last Admin: 03/10/19 08:17 Dose: 100 mls/hr Lactated Ringer's (Ringers, Lactated) Confirm Administered Dose 1,000 mls @ as directed .ROUTE .STK-MED ONE Stop: 03/09/19 11:40 Insulin Human Lispro (Humalog) 0 unit SUBCUT QIDACANDBED [facility]; Protocol Last Admin: 03/10/19 11:19 Dose: Not Given Iodine (Iodine 2% Mild Tincture) Confirm Administered Dose 30 ml .ROUTE .STK- MED ONE Stop: 03/09/19 09:36 Last Admin: 03/09/19 12:21 Dose: 18 ml Lidocaine HCl (Xylocaine 2% Jelly) 10 ml MUCMEM ONETIME ONE Stop: 03/10/19 13:00 Last Admin: 03/10/19 13:00 Dose: 10 ml Lidocaine/Sodium Bicarbonate (Buffered Lidocaine 1% In Ns 8.4%) 0.25 ml IDERM ONETIME PRN PRN Reason: Prior to IV Start Last Admin: 03/09/19 09:09 Dose: 0.25 ml Lisinopril (Prinivil) 40 mg PO DAILY [facility] Last Admin: 03/10/19 08:15 Dose: 40 mg Loratadine (Claritin) 10 mg PO DAILY [facility] Last Admin: 03/10/19 08:15 Dose: 10 mg Metoprolol Tartrate (Lopressor) 150 mg PO DAILY [facility] Last Admin: 03/10/19 08:15 Dose: 150 mg Midazolam HCl (Versed 1 Mg/Ml) Confirm Administered Dose 2 mg .ROUTE .STK-MED ONE Stop: 03/09/19 09:53 Midazolam HCl (Versed 1 Mg/Ml) Confirm Administered Dose 2 mg .ROUTE .STK-MED ONE Stop: 03/09/19 11:18 Midazolam HCl (Versed 1 Mg/Ml) Confirm Administered Dose 2 mg .ROUTE .STK-MED ONE Stop: 03/09/19 11:21 Midazolam HCl (Versed 1 Mg/Ml) Confirm Administered Dose 2 mg .ROUTE .STK-MED ONE Stop: 03/09/19 12:04 Naloxone HCl (Narcan) 0.1 mg IVPUSH Q5M PRN PRN Reason: Oversedation Ondansetron HCl (Zofran) 4 mg IVPUSH Q6H PRN PRN Reason: Nausea/Vomiting Rosuvastatin Calcium (Crestor) 10 mg PO DAILY [facility] Last Admin: 03/10/19 08:15 Dose: 10 mg Senna (Senna) 8.6 mg PO BID PRN PRN Reason: Constipation Sodium Chloride (Saline Flush) 10 ml FLUSH ASDIRECTED PRN PRN Reason: Keep Vein Open Tamsulosin HCl (Flomax) 0.4 mg PO ONETIME ONE Stop: 03/09/19 18:59 Last Admin: 03/09/19 22:00 Dose: 0.4 mg Tamsulosin HCl (Flomax) 0.4 mg PO ONETIME ONE Stop: 03/10/19 10:46 Last Admin: 03/10/19 10:58 Dose: 0.4 mg Tramadol HCl (Ultram) 50 - 100 mg PO Q4H PRN PRN Reason: Pain Last Admin: 03/10/19 15:32 Dose: 50 mg Tranexamic Acid (Cyklokapron) Confirm Administered Dose 1,000 mg .ROUTE .STK- MED ONE Stop: 03/09/19 09:35 Last Admin: 03/09/19 12:28 Dose: 1,000 mg Vancomycin HCl (Vancomycin) Confirm Administered Dose 1 gm .ROUTE .STK-MED ONE Stop: 03/09/19 09:35 Last Admin: 03/09/19 12:27 Dose: 1 gm Vancomycin HCl (Vancomycin) Confirm Administered Dose 1 gm .ROUTE .STK-MED ONE Stop: 03/09/19 10:38
--- NOTE | 2019-03-13 13:20 | PCM.OPNOTE ---
- General Post-Op/Procedure Note Date of Surgery/Procedure: 03/09/19 Operative Procedure(s): left total hip arthroplasty Pre Op Diagnosis: left hip osteoarthrosis Post-Op Diagnosis: Same Anesthesia Technique: Local, MAC, Spinal Primary Surgeon: Dale Powell Anesthesia Provider: Rick Brewer Occupational Hygienist: Tasia Heath Occupational Hygienist: Aylin Zendejas EBDangelo in mLs: 150 Complications: None Condition: Good Free Text/Narrative:: size 52 cup 6 stem 28 -2.7 mdm
--- NOTE | 2019-03-13 14:01 | OR ---
DATE OF OPERATION: 03/09/2019 SURGEON: Dale Powell MD OPERATION PERFORMED: Left total hip arthroplasty. PREOPERATIVE DIAGNOSIS: Left hip osteoarthrosis. POSTOPERATIVE DIAGNOSIS: Left hip osteoarthrosis. ANESTHESIA: Local MAC with spinal. ANESTHESIA PROVIDER: Rick Brewer CRNA. NURSE FIRST AID: Tasia Heath PA-C and Aylin Zendejas LPN. ESTIMATED BLOOD LOSS: 150 mL. COMPLICATIONS: None. CONDITION: Stable. IMPLANTS: 1. [place] size 52 Tritanium II acetabular cup. 2. [place] size 6 Accolade II stem. 3. Shahzad size 28 mm -2.7 Biolox femoral head. 4. Size 48/28 MDM components. DESCRIPTION OF PROCEDURE: The patient was identified in the preop holding area. Proper site was marked and identified by the surgeon. The patient was taken back to the operating theater. After adequate anesthesia, the patient was placed in a right lateral decubitus position. Axillary roll was placed. All bony prominences were well padded. Pegs were then placed and were well padded. The patient's gluteal fold was parallel to the floor. At this time, left hip was then sterilely prepped and draped in usual sterile fashion. OR time-out was performed. The patient received 2 g of IV Ancef. Standard incision was made centered over the greater trochanter. This was taken down to the IT band and gluteal fascia, which was incised along the incisional length. Charnley retractor was then placed. Short external rotators were identified and takedown of short external rotators was done from the level of the piriformis down to lesser trochanter as well as the capsulotomy. Hip was then dislocated. Neck cut was then completed. Attention was turned to the acetabulum. Anterior and posterior acetabular retractors were placed. Circumferentially, the labrum was removed as well as any remaining pulvinar. Starting with a 44 reamer, I was able to ream up to a 52 which was found to have good purchase, 52 mm Tritanium II solid acetabular cup was then impacted and placed and roughly 45 degrees of abduction and 20 to 30 degrees of anteversion. At this time, the MDM liner was then impacted in place and attention was turned to the femur. Box chisel was used out laterally. Starter awl was placed down the canal. Starting with 0 broach, I broached up to size 6 which was found to be rotationally and vertically stable. A 127-degree neck was applied along with a standard 0 head and trial components. At this time, the hip was relocated, was found to be just very small amount, long, but was stable throughout range of motion. Bone hook was needed to help dislocate the hip. At this time, the size 6 Accolade II stem was impacted in place along with a 28/48 MDM components, -2.7 were constructed on the back table and then impacted on the Accolade II stem. Hip was then relocated and was found to be stable. At this time, 1 L dilute Betadine solution along with 2 L pulse lavage irrigation with Ancef were brought through the hip. Periarticular injection was then completed. Topical tranexamic acid as well as vancomycin powder was placed. A #2 barbed suture was used for closure. IT band and gluteal fascia, 2-0 Vicryl was used subcutaneously and Prineo was used for the skin. The patient had a sterile soft dressing applied and sent to PACU in stable condition. MMODAL /[id number]
== END 2019-03-10 17:15 | disposition home or self-care (01) | DRG 470 ==
LOC: JD.MS 03-09 08:24
PROVIDERS: ADMIT Orthopaedic Surgery; ATTEND Orthopaedic Surgery
PROC: 0SRB03Z Replacement of Left Hip Joint with Ceramic Synthetic Substitute, Open Approach (ICD-10-PCS; principal; 2019-03-09)
DX: M16.12 Unilateral primary osteoarthritis, left hip (principal); I13.0 Hypertensive heart and chronic kidney disease with heart failure and stage 1 through stage 4 chronic kidney disease, or unspecified chronic kidney disease; N18.3 Chronic kidney disease, stage 3 (moderate); E66.9 Obesity, unspecified; E78.5 Hyperlipidemia, unspecified; M10.9 Gout, unspecified; E11.22 Type 2 diabetes mellitus with diabetic chronic kidney disease; H91.90 Unspecified hearing loss, unspecified ear; H54.7 Unspecified visual loss; J30.9 Allergic rhinitis, unspecified; E11.40 Type 2 diabetes mellitus with diabetic neuropathy, unspecified; G56.03 Carpal tunnel syndrome, bilateral upper limbs; R33.9 Retention of urine, unspecified; I25.10 Atherosclerotic heart disease of native coronary artery without angina pectoris; I50.9 Heart failure, unspecified; Z79.82 Long term (current) use of aspirin; Z87.891 Personal history of nicotine dependence; Z88.0 Allergy status to penicillin; Z68.38 Body mass index [BMI] 38.0-38.9, adult; Z91.038 Other insect allergy status; Z79.84 Long term (current) use of oral hypoglycemic drugs
CPT/HCPCS: 01214; 36415; 51701; 51702; 51798; 73501-26-LT; 73501-LT; 80053; 82962; 85027; 86850; 86900; 86901; 87641; 94640; 94660; 97110-GP; 97116-GP; 97161-GP; 97165-GO; 97535-GO; A9270-GY; C1776; J0171; J0690; J0697; J1170; J1815-GY; J2250; J3010; J3370; J3490; J7050; J7120